=== PATIENT | male | born 1990 | race Caucasian/White ===

== ENCOUNTER → 2018-02-06 18:05 | Outpatient (CLI) | payer BC, SELFPAY ==
[2018-02-06 19:14] LABS: Basophils % 0.3 % (0.1-2.0); Eosinophils # 0.1 K/mm3 (0.0-0.4); Hematocrit 43.9 % (42.0-52.0); Hemoglobin 14.6 g/dL (14.1-18.0); Lymphocytes # 1.8 K/mm3 (0.7-4.5); Lymphocytes % 29.7 % (10-50); Mean Corpuscular HGB Conc 33.3 g/dL (31.8-35.4); Mean Corpuscular Hemoglobin 29.4 pg (27.0-31.2); Mean Corpuscular Volume 88.2 fl (80-94); Mean Platelet Volume 8.1 fl (7.4-10.4); Monocytes # 0.5 K/mm3 (0.1-1.0); Monocytes % 7.6 % (1.7-9.3); Neutrophils # 3.7 K/mm3 (1.8-7.8); Neutrophils % 60.5 % (37.0-80.0); Platelet Count 282 K/mm3 (142-424); Red Blood Count 4.98 M/mm3 (4.60-6.20); Red Cell Distribution Width 13.3 % (11.5-17.5); White Blood Count 6.2 K/mm3 (4.8-10.8)
[2018-02-06 19:15] LABS: Alanine Aminotransferase 38 U/L (12-78); Albumin Level 3.8 gm/dL (3.4-5.0); Albumin/Globulin Ratio 1.2 (1.1-1.8); Alkaline Phosphatase 112 U/L (46-116); Anion Gap 15.6 mEq/L (5-15); Aspartate Amino Transferase 14 U/L (15-37); Bilirubin,Total 0.5 mg/dL (0.2-1.0); Blood Urea Nitrogen 12 mg/dL (7-18); Calcium 9.1 mg/dL (8.5-10.1); Carbon Dioxide 27 mmol/L (21.0-32.0); Chloride 102 mmol/L (98-107); Chol/HDL Ratio 5.2 (1-3.5); Cholesterol 152 mg/dL (140-200); Creatinine,Serum 0.97 mg/dL (0.70-1.30); Estimated Glomerular Filt Rate 92 ml/min (>60); GFR (African American) 112 ML/MIN (>60); Globulin 3.2 gm/dl (1.3-3.2); Glucose 103 mg/dL (74-106); HDL Cholesterol 29 mg/dL (27-67); LDL Cholesterol 103 mg/dL (0-130); Potassium 3.6 mmoL/L (3.5-5.1); Sodium 141 mmol/L (136-145); Thyroid Stimulating Hormone 3.33 uIU/ml (0.358-3.740); Triglycerides 102 mg/dL (30-200); VLDL Cholesterol 20 mg/dL (0-40)
[2018-02-10 11:14] LABS: Vitamin D 25 Hydroxy 18.8 ng/mL (30.0-100.0)
[2018-02-10 11:15] LABS: PSA, Free 0.41 ng/mL; Prostate Specific Ag 1.2 ng/mL (0.0-4.0)
== END ==
PROVIDERS: Visit Provider Physician Assistant
DX: N52.9 Male erectile dysfunction, unspecified (principal)
CPT/HCPCS: 80053; 80061; 82652; 84153; 84154; 84402; 84436; 84443; 85025

== ENCOUNTER → 2019-04-20 13:52 | Outpatient (CLI) | payer BC, SELFPAY ==
[2019-04-20 14:26] LABS: Basophils % 0.3 % (0.1-2.0); Eosinophils # 0.2 K/mm3 (0.0-0.4); Eosinophils % 2.3 % (0.1-12.0); Hematocrit 44.7 % (42.0-52.0); Hemoglobin 15.7 g/dL (14.1-18.0); Lymphocytes # 1.9 K/mm3 (0.7-4.5); Lymphocytes % 25.6 % (10-50); Mean Corpuscular HGB Conc 35.1 g/dL (31.8-35.4); Mean Corpuscular Hemoglobin 30.2 pg (27.0-31.2); Mean Corpuscular Volume 86.3 fl (80-94); Mean Platelet Volume 7.6 fl (7.4-10.4); Monocytes # 0.5 K/mm3 (0.1-1.0); Monocytes % 6.9 % (1.7-9.3); Neutrophils # 4.9 K/mm3 (1.8-7.8); Neutrophils % 64.8 % (37.0-80.0); Platelet Count 329 K/mm3 (142-424); Red Blood Count 5.19 M/mm3 (4.60-6.20); Red Cell Distribution Width 12.7 % (11.5-17.5); White Blood Count 7.5 K/mm3 (4.8-10.8)
[2019-04-20 15:13] LABS: Albumin Level 3.8 gm/dL (3.4-5.0); Albumin/Globulin Ratio 1.2 (1.1-1.8); Alkaline Phosphatase 122 U/L (46-116); Anion Gap 15.7 mEq/L (5-15); Aspartate Amino Transferase 18 U/L (15-37); Bilirubin,Total 0.3 mg/dL (0.2-1.0); Blood Urea Nitrogen 10 mg/dL (7-18); Calcium 9.2 mg/dL (8.5-10.1); Carbon Dioxide 27 mmol/L (21.0-32.0); Chloride 104 mmol/L (98-107); Cholesterol 149 mg/dL (140-200); Estimated Glomerular Filt Rate 88 ml/min (>60); GFR (African American) 107 ML/MIN (>60); Globulin 3.3 gm/dl (1.3-3.2); HDL Cholesterol 25 mg/dL (27-67); LDL Cholesterol 93 mg/dL (0-130); Potassium 3.7 mmoL/L (3.5-5.1); Sodium 143 mmol/L (136-145); T4 (Thyroxine) 9.7 ug/dl (4.7-13.3); Thyroid Stimulating Hormone 0.01 uIU/ml (0.358-3.740); Total Protein,Serum 7.1 gm/dL (6.4-8.2); Triglycerides 156 mg/dL (30-200); VLDL Cholesterol 31 mg/dL (0-40)
[2019-04-20 15:22] LABS: Alanine Aminotransferase 41 U/L (12-78); Glucose 75 mg/dL (74-106)
[2019-04-22 10:47] LABS: Vitamin D 25 Hydroxy 15.3 ng/mL (30.0-100.0)
== END ==
PROVIDERS: Visit Provider Physician Assistant
DX: F41.9 Anxiety disorder, unspecified (principal); E55.9 Vitamin D deficiency, unspecified
CPT/HCPCS: 80053; 80061; 82652; 84436; 84443; 85025

== ENCOUNTER → 2019-05-05 14:30 | Outpatient (CLI) | payer BC, SELFPAY ==
[2019-05-05 16:45] LABS: Free T4 (Free Thyroxine) 1.11 ng/dl (0.76-1.46); Thyroid Stimulating Hormone 2.49 uIU/ml (0.358-3.740)
[2019-05-07 10:27] LABS: Thyroid Peroxidase Antibodies 6 IU/mL (0-34)
[2019-05-08 17:18] LABS: Thyroid Stimulating Immunoglob <0.10 IU/L (0.00-0.55)
[2019-05-11 20:59] LABS: Testosterone, Total, LC/MS 509.6 ng/dL (264.0-916.0); Testosterone,Free 14.3 pg/mL (9.3-26.5)
== END ==
PROVIDERS: Nurse Practitioner Psychiatric/Mental Health; Visit Provider Otolaryngology
DX: R53.83 Other fatigue (principal); E05.90 Thyrotoxicosis, unspecified without thyrotoxic crisis or storm
CPT/HCPCS: 36415; 84402; 84403; 84439; 84443; 84445; 86376

== ENCOUNTER → 2019-05-11 13:06 | Outpatient (CLI) | payer BC, SELFPAY ==
--- NOTE | 2019-05-11 13:06 | US_ITS ---
PROCEDURE: US THYROID CLINICAL INDICATION: hyperthyroid COMPARISON: No exams were available for comparison FINDINGS: Right lobe: 1.4 x 4.3 x 1.6 centimeters Left lobe: 1.4 x 4.4 x 2.0 centimeters Isthmus: 2.7 millimeters Additional findings: There is homogeneous echotexture without a discrete nodule. IMPRESSION: Exam within normal limits. Dictated by: Lamberto Mobley 05/11/2019 16:06 Electronically signed by Lamberto Mobley in [place] 05/11/2019 16:06
== END ==
PROVIDERS: PCP Physician Assistant; Visit Provider Otolaryngology
DX: E05.90 Thyrotoxicosis, unspecified without thyrotoxic crisis or storm (principal)
CPT/HCPCS: 76536

== ENCOUNTER 2019-09-10 13:56 | Emergency (ER) | payer BC, SELFPAY ==
[2019-09-10 14:29] VITALS: BP 143/91; PULSE 63; RESP 20; TEMP 36.8; O2SAT 97; BMI 30.5
--- NOTE | 2019-09-10 14:45 | HMH.EDUTC ---
[facility] Disposition Clinical Impression: Eye problems Disposition: Home, Self-Care Condition on Discharge: Good Instructions: Conjunctivitis, DI for Conjunctivitis, DI for Eye Allergic Reaction Additional Instructions: Go straight to [facility] and call them when you are in the parking lot you must wear a mask Return if needed Straight to ER if any life threatening symptoms [facility] [address] [place] [address] Referrals: Alma Cabrera PA [Primary Care Provider] - [facility] [Other] Forms: Work/School Release Time of Disposition: 14:52 Medical Decision Making - Joe Inquiry Pt receiving controlled substance: No Joe was queried for this patient: No Vital Signs: 09/10/19 14:29 09/10/19 14:52 Temperature 98.3 F 98.3 F Temperature Source Oral Pulse Rate 63 Pulse Rate [Right Brachial] 63 Respiratory Rate 20 20 Blood Pressure 143/91 H Blood Pressure [Right Arm] 143/91 H Blood Pressure Mean [Right Arm] 108 Blood Pressure Source [Right Arm] Automatic Cuff Blood Pressure Position [Right Arm] Sitting 02 Sat by Pulse Oximetry 97 Oxygen Delivery Method Room Air - Physician Consults Physician Consulted: Dr Elver Vidal Time: 14:50 Reason -: Opthalmology Eval/Care Comment/Response: Spoke with Staff and informed them of findings on Exam and patient complaint advised have him come straight to the office and they would see him for further treatment and evaluation [facility] HPI - General Stated complaint: eyes red and itchy, sore X 1 week Time Seen by Provider: 09/10/19 14:45 Mode of Arrival: Ambulatory Source of Information: Patient Limitations: No Limitations Description of Symptoms (Recalled from Triage Doc. by RN): PATIENT C/O BILATERAL PINK EYE SINCE SATURDAY. STATES HE WAS SEEN IN PSYCHIATRIC AND GIVEN OINTMENT, BUT EYES ARE NOT BETTER. HEENT Symptoms (Recalled from RN notes): No Resp Symptoms (Recalled from RN notes): No Skin Symptoms (Recalled from RN notes): No MS Symptoms (Recalled from RN notes): No Functional Status (Recalled from RN notes): WNL - History of Present Illness Provider Complaint: Patient states that he was seen at [facility] in [place] and was dx with pink eye States that he was give Erythromycin and his eyes has continued to get worse State that today eyes looks more red and doesnt think the medication is working Denies injury - Related Data Previous Rx's Medication Instructions Recorded cholecalciferol (vitamin D3) 25 1,000 unit PO DAILY #90 cap 04/23/19 mcg (1,000 unit) capsule ergocalciferol (vitamin D2) 1,250 50,000 unit PO QWEEK 90 Days #12 04/23/19 mcg (50,000 unit) capsule cap risperidone 0.5 mg tablet 0.5 mg PO BID #60 tab 07/20/19 clonazepam 2 mg tablet 2 mg PO BID #60 tab 08/05/19 propranolol 80 mg capsule,24 See Rx Instructions .ROUTE 08/18/19 hr,extended release .COMPLEX #90 cap Allergies Allergy/AdvReac Type Severity Reaction Status Date / Time No Known Allergies Allergy Verified 07/15/19 13:01 - Worker's Comp Is this a Worker's Comp case?: No [facility] History - Hepatitis A Screen Drug use history?: No High risk sexual behaviors?: No History of sexually transmitted infection?: No Currently employed?: No Childcare worker?: No Do you have indoor plumbing?: Yes Do you have electricity?: Yes Attestation statement:: This patient has been screened for Hepatitis A risk factors. I have reviewed the patient's past medical history: Yes Medical History: Reports:: Anxiety, Hypertension Other Surgeries: Yes: Other Amputation: No Comment: Nose - Social History Smoking Status: Never smoker Alcohol Intake: never Substance Use Type: denies use Occupational Status: other - Psychiatric History Pschychiatric History:: Reports:: Anxiety Family Hx:: Cancer, Hyperlipidemia, Hypertension, Thyroid Disorder ROS Obtained: Yes All systems reviewed & no additi
[2019-09-10 14:52] VITALS: BP 143/91; PULSE 63; RESP 20; TEMP 36.8; O2SAT 97
== END 2019-09-10 14:57 | disposition home or self-care (01) ==
PROVIDERS: Emergency Provider Nurse Practitioner; PCP Physician Assistant
DX: H10.33 Unspecified acute conjunctivitis, bilateral (principal); E55.9 Vitamin D deficiency, unspecified; F41.9 Anxiety disorder, unspecified; I10 Essential (primary) hypertension
CPT/HCPCS: 99201

== ENCOUNTER 2019-09-19 12:59 | Emergency (ER) | payer BC, SELFPAY ==
[2019-09-19 13:25] VITALS: BP 113/70; PULSE 96; RESP 19; TEMP 36.7; O2SAT 98; BMI 29.4
--- NOTE | 2019-09-19 13:30 | XR_ITS ---
PROCEDURE: XR FOOT WT BEARING LT 3V Patient Age:29Y CLINICAL INDICATION: PAIN left heel pain 3 weeks the COMPARISON: No exams were available for comparison FINDINGS: Left foot three views weight-bearing performed.-AP, lateral, with oblique No fracture or dislocation. No lytic or blastic change. There is normal mineralization. But adequate plantar arch but calcaneus is intact but no plantar calcaneal spur. Toes intact. The tarsals and metatarsals intact. Overall satisfactory relationships but no periosteal reaction but no cortical thickening The joint spaces are well-preserved. No significant degenerative/arthritic changes. No erosive changes evident. On 2 tiny artifacts seen projected posterior to the talus on the lateral film only are not seen on other views and thus are in significant artifact IMPRESSION: Negative left foot. L Eft foot intact. Dictated by: Mingo Patel MD 09/20/2019 09:54 Electronically signed by Mingo Patel MD in [place] 09/20/2019 09:54
--- NOTE | 2019-09-19 13:30 | XR_ITS ---
PROCEDURE: XR KNEE LT 3V Patient Age:29Y CLINICAL INDICATION: PAIN Knee pain the COMPARISON: XR FOOT WT BEARING LT 3V from 09/19/2019 FINDINGS: Left Knee-three views: AP, lateral and oblique performed No fracture or dislocation. No lytic or blastic change. There is normal mineralization. The joint spaces are well-preserved. No significant degenerative/arthritic changes. No erosive changes evident. Upper normal joint fluid at suprapatellar bursa on lateral view.. Tiny benign bone islands proximal tibia and mid patella noted IMPRESSION: Left knee intact with no fracture evident. Normal relationships joint space well maintained. . Upper normal joint fluid suprapatellar bursa Dictated by: Mingo Patel MD 09/20/2019 09:51 Electronically signed by Mingo Patel MD in [place] 09/20/2019 09:51
--- NOTE | 2019-09-19 13:33 | HMH.EDUTC ---
[facility] [place] Disposition Clinical Impression: Plantar fasciitis Low back strain Qualifiers: Encounter type: initial encounter Qualified Code(s): S39.012A - Strain of muscle, fascia and tendon of lower back, initial encounter Disposition: Home, Self-Care Condition on Discharge: Good Instructions: Plantar Fasciitis, DI for Plantar Fasciitis, Prednisone, Methocarbamol Additional Instructions: *Ibuprofen fredis 6 hours with meal as needed for pain/inflammation *Not additional anti-inflammatory like motrin, aleve, advil with the above amount of ibuprofen. You can still take Tylenol every 4 hours as needed if you need something else for pain *Ice 20 minutes every 2 hours for the first 48 hours after the initial injury followed by moist heat every 20 minutes 3-4 times a day to affected area *Muscle relaxer as prescribed as needed for muscle spasms but remember, it WILL cause drowsiness You cannot take it and drive, operate machinery or care for small children. *Keep this area active, no movement leads to more stiffness, However take it easy and avoid heavy lifting pushing or pulling *Follow up with you family doctor if no improvement for further treatment Make sure to keep appointment with Dr Giraldo as scheduled Return if needed Straight to ER if any life threatening symptoms Prescriptions: methylPREDNISolone [Medrol 4mg tab] 4 mg PO DIRECTED #21 tab Transmission Status: Pending to [facility] methocarbamoL [Methocarbamol 500mg Tablet] 500 mg PO BID PRN 5 Days #10 tab PRN Reason: Muscle Spasm Transmission Status: Pending to [facility] Referrals: Alma Cabrera PA [Primary Care Provider] - As needed Madelaine Giraldo DPM [Staff Physician] - Time of Disposition: 15:01 Medical Decision Making - Joe Inquiry Pt receiving controlled substance: No Joe was queried for this patient: No Vital Signs: 09/19/19 13:25 Temperature 98.0 F Temperature Source Oral Pulse Rate [Right Brachial] 96 H Respiratory Rate 19 Blood Pressure [Right Arm] 113/70 Blood Pressure Mean [Right Arm] 84 Blood Pressure Source [Right Arm] Automatic Cuff Blood Pressure Position [Right Arm] Sitting 02 Sat by Pulse Oximetry 98 Oxygen Delivery Method Room Air Orders (Tests/Meds): ORDERS Category Date Time Status Knee XR left 3 views [XR knee LT 3V] Stat Exams 09/19/19 13:30 Ordered XR foot wt bearing LT 3V Stat Exams 09/19/19 13:30 Ordered - Radiology Data #1 Image(s): Knee Image Reviewed: Yes I reviewed the patient's radiology image Preliminary Findings: No Fracture Seen #2 Image(s): Foot/Toes Image Reviewed: Yes I reviewed the patient's radiology image Preliminary Findings: No Fracture Seen - Reevaluation(s) Time: 13:30 Reevaluation #1: Radiology notified of order for xray patient awaiting to go to xray Time: 14:28 Reevaluation #3: Patient resting in room no complaints still awaiting to go to xray [facility] HPI - General Stated complaint: back pain knee pain, foot pain Time Seen by Provider: 09/19/19 13:33 Mode of Arrival: Ambulatory Source of Information: Patient Limitations: No Limitations Description of Symptoms (Recalled from Triage Doc. by RN): PATIENT C/O BACK PAIN, LEFT KNEE PAIN, AND LEFT FOOT PAIN X 3 DAYS HEENT Symptoms (Recalled from RN notes): No Resp Symptoms (Recalled from RN notes): No Skin Symptoms (Recalled from RN notes): No MS Symptoms (Recalled from RN notes): Yes Functional Status (Recalled from RN notes): WNL - History of Present Illness Provider Complaint: Patient states that he is suppose to see Podiatry on Saturday for pain in his left foot with suspected planter facitits States that where he has been limping on it his left knee started hurting and feels swollen Also states that he feels like he pulled something in his right lower back the other day States that he has been having pain with bending and getting up from sitting position Denies known injury States that
--- NOTE | 2019-09-19 14:32 | PC.NURSE ---
radiology called at [phone]
--- NOTE | 2019-09-19 14:32 | PC.NURSE ---
pt to rad at this time
[2019-09-19 15:15] VITALS: BP 113/70; PULSE 96; RESP 19; TEMP 36.7; O2SAT 98
== END 2019-09-19 15:20 | disposition home or self-care (01) ==
PROVIDERS: Emergency Provider Nurse Practitioner; PCP Physician Assistant
DX: M72.2 Plantar fascial fibromatosis (principal); S39.012A Strain of muscle, fascia and tendon of lower back, initial encounter; I10 Essential (primary) hypertension; F41.9 Anxiety disorder, unspecified; Z79.899 Other long term (current) drug therapy
CPT/HCPCS: 29515; 73562; 73630; 99202

== ENCOUNTER → 2019-10-09 12:53 | Outpatient (CLI) | payer BC, SELFPAY ==
--- NOTE | 2019-10-09 12:54 | XR_ITS ---
PROCEDURE: XR KNEE LT 4V CLINICAL INDICATION: left knee pain COMPARISON: No exams were available for comparison FINDINGS: No fracture or dislocation. No lytic or blastic change. There is normal mineralization. The joint spaces are well-preserved. No significant degenerative/arthritic changes. No erosive changes evident. Other findings:None. IMPRESSION: No acute findings. Dictated by: Dr. Marcos Whittaker MD 10/09/2019 13:[address] Marcos Whittaker MD in [place] 10/09/2019 13:29
--- NOTE | 2019-10-09 14:03 | XR_ITS ---
PROCEDURE: XR KNEE RT 4V CLINICAL INDICATION: Rt knee pain COMPARISON: XR KNEE LT 3V from 09/19/2019 XR KNEE LT 4V from 10/09/2019 FINDINGS: No fracture or dislocation. No lytic or blastic change. There is normal mineralization. The joint spaces are well-preserved. No significant degenerative/arthritic changes. No erosive changes evident. Other findings:There are 2 small foci within the distal femur and 1 within the patella consistent with small bone IMPRESSION: No acute findings. Dictated by: Kushal Mauricio MD 10/09/2019 16:47 Electronically signed by Kushal Mauricio MD in [place] 10/09/2019 16:47
== END ==
PROVIDERS: PCP Physician Assistant; Visit Provider Orthopaedic Surgery
DX: M25.562 Pain in left knee (principal); M25.561 Pain in right knee
CPT/HCPCS: 73564

== ENCOUNTER → 2019-10-20 14:45 | Outpatient (CLI) | payer BC, SELFPAY ==
[2019-10-20 15:17] LABS: Basophils % 0.4 % (0.1-2.0); Eosinophils # 0.1 K/mm3 (0.0-0.4); Eosinophils % 0.8 % (0.1-12.0); Hematocrit 38.5 % (42.0-52.0); Lymphocytes # 1.2 K/mm3 (0.7-4.5); Lymphocytes % 22.8 % (10-50); Mean Corpuscular HGB Conc 33.8 g/dL (31.8-35.4); Mean Corpuscular Volume 88.8 fl (80-94); Mean Platelet Volume 7.4 fl (7.4-10.4); Monocytes # 0.3 K/mm3 (0.1-1.0); Monocytes % 4.9 % (1.7-9.3); Neutrophils # 3.9 K/mm3 (1.8-7.8); Neutrophils % 71.1 % (37.0-80.0); Platelet Count 366 K/mm3 (142-424); Red Blood Count 4.33 M/mm3 (4.60-6.20); Red Cell Distribution Width 13.4 % (11.5-17.5); White Blood Count 5.5 K/mm3 (4.8-10.8)
[2019-10-20 17:58] LABS: Erythrocyte Sedimentation Rate 47 mm/hr (0-15)
[2019-10-20 18:04] LABS: Alanine Aminotransferase 20 U/L (12-78); Albumin Level 4.2 g/dl (3.5-5.0); Albumin/Globulin Ratio 1.4 (1.1-1.8); Alkaline Phosphatase 91 U/L (38-126); Anion Gap 14.8 mEq/L (5-15); Aspartate Amino Transferase 21 U/L (17-59); Bilirubin,Total 0.6 mg/dl (0.2-1.3); Blood Urea Nitrogen 12 mg/dl (9-20); Calcium 9.9 mg/dl (8.4-10.2); Carbon Dioxide 31 mmol/L (22.0-30.0); Chloride 99 mmol/L (98-107); Estimated Glomerular Filt Rate 114 ml/min (>60); GFR (African American) 137 ML/MIN (>60); Globulin 2.9 g/dL (1.3-3.2); Glucose 98 mg/dl (74-100); Potassium 4.8 mmoL/L (3.5-5.1); Sodium 140 mmol/L (136-145); Total Protein,Serum 7.1 g/dl (6.3-8.2); Uric Acid 5.5 mg/dl (3.5-8.5)
[2019-10-20 18:10] LABS: C-Reactive Protein 39.7 mg/L (0-4)
[2019-10-22 10:11] LABS: Folate 4.6 ng/mL (>3.0); RA Latex Turbid. <10.0 IU/mL (0.0-13.9); Vitamin B12 474 pg/mL (232-1245)
[2019-10-23 12:30] LABS: Antinuclear Antibodies, IFA Negative (.)
[2019-10-25 09:38] LABS: 1,25 Dihydroxy Vitamin D 43 pg/mL (.); 1,25-Dihydroxy, Vitamin D-2 <10 pg/mL (.); 1,25-Dihydroxy, Vitamin D-3 42 pg/mL (.)
== END ==
PROVIDERS: Visit Provider Podiatrist
DX: M79.671 Pain in right foot (principal)
CPT/HCPCS: 36415; 80053; 82607; 82652; 82746; 84443; 84550; 85025; 85651; 86038; 86140; 86431

== ENCOUNTER → 2019-11-04 09:42 | Outpatient (CLI) | payer BC, SELFPAY ==
--- NOTE | 2019-11-04 09:48 | XR_ITS ---
PROCEDURE: XR LUMBAR SPINE MIN 4V CLINICAL INDICATION: LBP Low back pain COMPARISON: No exams were available for comparison FINDINGS: No fracture or dislocation. No lytic or blastic change. There is normal mineralization. Minimal lumbar curvature convex left. The disc spaces are well preserved. Other findings:None. IMPRESSION: No acute findings. Dictated b Kushal Mauricio MD 11/04/2019 14:13 Kushal Mauricio MD in [place] 11/04/2019 14:13
[2019-11-04 14:07] LABS: Uric Acid 5.1 mg/dl (3.5-8.5)
[2019-11-04 14:12] LABS: C-Reactive Protein 20.5 mg/L (0-4)
[2019-11-04 18:20] LABS: Erythrocyte Sedimentation Rate 23 mm/hr (0-15)
[2019-11-06 14:15] LABS: RA Latex Turbid. <10.0 IU/mL (0.0-13.9)
[2019-11-08 12:20] LABS: Anti-Cyclic Citrullinated Pept 7 units (0-19); Antinuclear Antibodies, IFA Positive (.)
[2019-11-11 22:52] LABS: HLA-B27 Negative (.)
== END ==
PROVIDERS: PCP Physician Assistant; Visit Provider Physician Assistant
DX: M25.50 Pain in unspecified joint (principal); F31.9 Bipolar disorder, unspecified; E55.9 Vitamin D deficiency, unspecified
CPT/HCPCS: 72110; 84550; 85651; 86038; 86140; 86200; 86431; 86812

== ENCOUNTER 2020-04-05 16:45 | Emergency (ER) | payer BC, SELFPAY ==
[2020-04-05 16:46] VITALS: BP 125/69; PULSE 71; RESP 14; TEMP 36.4; O2SAT 94; BMI 29.5
--- NOTE | 2020-04-05 17:39 | HMH.EDUTC ---
[facility] [place] Disposition Clinical Impression: Viral syndrome, Exposure to COVID-19 virus Disposition: Home, Self-Care Condition on Discharge: Good Instructions: Preventing the Spread of Coronavirus Discharge Instructions Additional Instructions: Drink plenty of fluids. Take tylenol for pain or fever. Return if you begin to have difficulty breathing. Follow up with your regular doctor. GO TO THE ER FOR ANY WORSENING SYMPTOMS Referrals: Alma Cabrera PA [Primary Care Provider] - Time of Disposition: 17:46 Medical Decision Making - Medical Records Medical records reviewed: No: I reviewed the patient's medical records. - Joe Inquiry Pt receiving controlled substance: No Vital Signs: 04/05/20 16:46 04/05/20 17:48 Temperature 97.5 F L 97.5 F L Temperature Source Oral Oral Pulse Rate 71 Pulse Rate [Right] 71 Respiratory Rate 14 14 Blood Pressure 125/69 Blood Pressure [Right Arm] 125/69 Blood Pressure Mean [Right Arm] 87 02 Sat by Pulse Oximetry 94 L [facility] [place] HPI - General Stated complaint: covid test Time Seen by Provider: 04/05/20 17:39 Description of Symptoms (Recalled from Triage Doc. by RN): pt request COVID test pt c/o chills ,REYNOLDS, N/d HEENT Symptoms (Recalled from RN notes): No Resp Symptoms (Recalled from RN notes): Yes Skin Symptoms (Recalled from RN notes): No MS Symptoms (Recalled from RN notes): No Functional Status (Recalled from RN notes): wl - History of Present Illness Provider Complaint: He c/o chills, body aches, altered sense of taste and feeling bad for the past 3 days. - Related Data Previous Rx's Medication Instructions Recorded diclofenac sodium 1 % topical gel 4 g TOPICAL QID PRN #30 g 10/20/19 meloxicam 7.5 mg tablet 7.5 mg PO ONCE #30 tab 10/20/19 cariprazine 1.5 mg capsule 1.5 mg PO DAILY #30 cap 03/15/20 clonazepam 2 mg tablet 2 mg PO BID #60 tab 03/15/20 Allergies Allergy/AdvReac Type Severity Reaction Status Date / Time No Known Allergies Allergy Verified 03/15/20 11:19 - Worker's Comp Is this a Worker's Comp case?: No Is this an [facility] Worker's Comp?: No Is this a [facility] Worker's Comp?: No H History - Hepatitis A Screen Drug use history?: No High risk sexual behaviors?: No History of sexually transmitted infection?: No Currently employed?: No Childcare worker?: No Do you have indoor plumbing?: Yes Do you have electricity?: Yes Attestation statement:: This patient has been screened for Hepatitis A risk factors. I have reviewed the patient's past medical history: Yes Medical History: Reports:: Anxiety, Hypertension Other Surgeries: Yes: Other Amputation: No Comment: Nose - Social History Smoking Status: Never smoker Alcohol Intake: never Substance Use Type: denies use Occupational Status: other - Psychiatric History Pschychiatric History:: Reports:: Anxiety Family Hx:: Cancer, Hyperlipidemia, Hypertension, Thyroid Disorder ROS Obtained: Yes All systems reviewed & no additional complaints - Constitutional Constitutional: Reports system reviewed and no additional complaints, except as docu - Eyes Eyes: Reports system reviewed and no additional complaints, except as docu - ENT Ears, Nose, Mouth, and Throat: Reports system reviewed and no additional complaints, except as docu - Cardiovascular Cardiovascular: Reports system reviewed and no additional complaints, except as docu, Denies dyspnea - Respiratory Respiratory: Reports system reviewed and no additional complaints, except as docu, Denies chest congestion, Denies cough, Denies dyspnea, Denies stridor, Denies wheezing - Gastrointestinal Gastrointestingal: Reports: system reviewed and no additional complaints, except as docu Physical Exam - General General appearance: alert, in no apparent distress - Head Head exam: atraumatic, normocephalic, normal inspection - Eye Eye exam: Present: normal appearance, PERRL, EOMI - ENT ENT exam: Present:
[2020-04-05 17:48] VITALS: BP 125/69; PULSE 71; RESP 14; TEMP 36.4; O2SAT 94
[2020-04-07 11:43] LABS: Covid-19 Nasal PCR Sendout P&C NEGATIVE
== END 2020-04-05 17:54 | disposition home or self-care (01) ==
PROVIDERS: Emergency Provider Nurse Practitioner Family; PCP Physician Assistant
DX: Z20.822 Contact with and (suspected) exposure to COVID-19 (principal); B34.9 Viral infection, unspecified; I10 Essential (primary) hypertension; F41.9 Anxiety disorder, unspecified; Z79.899 Other long term (current) drug therapy
CPT/HCPCS: 99202; G0463; U0004

== ENCOUNTER → 2020-07-04 13:43 | Outpatient (CLI) | payer BC, SELFPAY ==
[2020-07-04 15:24] LABS: Amphetamine/Metha Screen,Urine Negative ng/ml (<1000)
[2020-07-04 15:25] LABS: Barbiturates Screen,Urine Negative ng/ml (<200)
[2020-07-04 15:26] LABS: Cannabinoid Screen,Urine Negative ng/ml (<50)
[2020-07-04 15:27] LABS: Cocaine Screen,Urine Negative ng/ml (<300); Methadone Screen,Urine Negative ng/ml (<300)
[2020-07-04 15:28] LABS: Opiate Screen,Urine Negative ng/ml (<300)
[2020-07-04 15:29] LABS: Phencyclidine Screen,Urine Negative ng/ml (<25)
[2020-07-04 15:31] LABS: Benzodiazepines Screen,Urine Negative ng/ml (<200)
== END ==
PROVIDERS: Visit Provider Physician Assistant
DX: Z79.899 Other long term (current) drug therapy (principal)
CPT/HCPCS: 80305

== ENCOUNTER 2020-08-05 11:09 | Emergency (ER) | payer BC, SELFPAY ==
[2020-08-05 11:21] VITALS: BP 117/75; PULSE 64; RESP 17; TEMP 36.8; O2SAT 98; BMI 31.1
[2020-08-05 11:26] VITALS: BP 117/75; PULSE 64; RESP 17; TEMP 36.8; O2SAT 98
--- NOTE | 2020-08-05 11:27 | HMH.EDUTC ---
[facility] [place] Disposition Clinical Impression: Strep throat Disposition: Home, Self-Care Condition on Discharge: Good Instructions: DI for Strep Throat Additional Instructions: Start antibiotics today be sure to take it as ordered with the full length of time although you should start feeling better in 24-48 hours. Change toothbrush and toothpaste 24-48 hours after starting antibiotics Tylenol or Motrin as needed for fever or pain Encourage fluids, water, Gatorade, Powerade, try cold fluids, popsicles, ice cream will make it feel better You are contagious for 24 hours. Avoid kissing anyone, no eating or drinking after anyone. You are contagious. Follow-up the ER for new or worsening symptoms or no noticeable improvement over the next 24-48 hours. Follow-up with PCP this week. Prescriptions: Azithromycin [Zithromax 250mg tab] 250 mg PO DIRECTED #6 tab Transmission Status: Pending to [facility] Referrals: Alma Cabrera PA [Primary Care Provider] - Time of Disposition: 11:34 Medical Decision Making - Joe Inquiry Pt receiving controlled substance: No Vital Signs: 08/05/20 11:21 08/05/20 11:26 Temperature 98.2 F 98.2 F Temperature Source Oral Pulse Rate 64 Pulse Rate [Left] 64 Respiratory Rate 17 17 Blood Pressure 117/75 Blood Pressure [Right Arm] 117/75 Blood Pressure Mean [Right Arm] 89 02 Sat by Pulse Oximetry 98 [facility] HPI - General Chief complaint: Urgent [facility] Stated complaint: sore throat,cough Time Seen by Provider: 08/05/20 11:27 Mode of Arrival: Ambulatory Source of Information: Patient Limitations: No Limitations Description of Symptoms (Recalled from Triage Doc. by RN): Pt states he wants to be strep tested because his tested positive HEENT Symptoms (Recalled from RN notes): No Resp Symptoms (Recalled from RN notes): No Skin Symptoms (Recalled from RN notes): No MS Symptoms (Recalled from RN notes): No Functional Status (Recalled from RN notes): wnl - History of Present Illness Provider Complaint: 30 yr old male presents for sore throat. pt states and son both tested positive for strep. - Related Data Previous Rx's Medication Instructions Recorded clonazepam 2 mg tablet 2 mg PO BID #60 tab 07/04/20 Azithromycin [Zithromax 250mg 250 mg PO DIRECTED #6 tab 08/05/20 tab] Allergies Allergy/AdvReac Type Severity Reaction Status Date / Time No Known Allergies Allergy Verified 07/04/20 10:35 - Worker's Comp Is this a Worker's Comp case?: No Is this an [facility] Worker's Comp?: No [facility] History - Hepatitis A Screen Drug use history?: No High risk sexual behaviors?: No History of sexually transmitted infection?: No Currently employed?: No Childcare worker?: No Do you have indoor plumbing?: Yes Do you have electricity?: Yes Attestation statement:: This patient has been screened for Hepatitis A risk factors. I have reviewed the patient's past medical history: Yes Medical History: Reports:: Anxiety, Hypertension Other Surgeries: Yes: Other Amputation: No Comment: Nose - Social History Smoking Status: Never smoker Alcohol Intake: never Substance Use Type: denies use Occupational Status: other - Psychiatric History Pschychiatric History:: Reports:: Anxiety Family Hx:: Cancer, Hyperlipidemia, Hypertension, Thyroid Disorder ROS Obtained: Yes Systems reviewed as appropriate & no additional complaints - Constitutional Constitutional: Reports system reviewed and no additional complaints, except as docu, Denies fever(s) - Eyes Eyes: Reports system reviewed and no additional complaints, except as docu, Denies change in vision - ENT Ears, Nose, Mouth, and Throat: Reports system reviewed and no additional complaints, except as docu, Reports sore throat - Cardiovascular Cardiovascular: Reports system reviewed and no additional complaints, except as docu, Denies chest pain at rest - Respiratory Respiratory: Report
[2020-08-05 17:20] LABS: UTC Strep Screen (Rapid) Negative (Negative)
== END 2020-08-05 11:38 | disposition home or self-care (01) ==
PROVIDERS: Emergency Provider Nurse Practitioner Family; PCP Physician Assistant
DX: J02.0 Streptococcal pharyngitis (principal)
CPT/HCPCS: 87880; 99202; G0463

== ENCOUNTER → 2020-09-13 13:56 | Outpatient (CLI) | payer BC, SELFPAY ==
[2020-09-13 14:06] LABS: Basophils % 0.6 % (0.1-2.0); Eosinophils # 0.1 K/mm3 (0.0-0.4); Eosinophils % 1.8 % (0.1-12.0); Hematocrit 43.8 % (42.0-52.0); Hemoglobin 15.5 g/dL (14.1-18.0); Lymphocytes # 1.7 K/mm3 (0.7-4.5); Lymphocytes % 24.9 % (10-50); Mean Corpuscular HGB Conc 35.4 g/dL (31.8-35.4); Mean Corpuscular Hemoglobin 30.2 pg (27.0-31.2); Mean Corpuscular Volume 85.1 fl (80-94); Mean Platelet Volume 7.8 fl (7.4-10.4); Monocytes # 0.5 K/mm3 (0.1-1.0); Monocytes % 7.2 % (1.7-9.3); Neutrophils # 4.6 K/mm3 (1.8-7.8); Neutrophils % 65.6 % (37.0-80.0); Platelet Count 291 K/mm3 (142-424); Red Blood Count 5.15 M/mm3 (4.60-6.20); White Blood Count 6.9 K/mm3 (4.8-10.8)
[2020-09-13 14:17] LABS: Chloride 100 mmol/L (98-107); Potassium 4.2 mmoL/L (3.5-5.1); Sodium 141 mmol/L (136-145)
[2020-09-13 14:19] LABS: Blood Urea Nitrogen 10 mg/dl (9-20); Estimated Glomerular Filt Rate 98 ml/min (>60); GFR (African American) 119 ML/MIN (>60)
[2020-09-13 14:20] LABS: Alanine Aminotransferase 35 U/L (12-78); Albumin Level 4.6 g/dl (3.5-5.0); Albumin/Globulin Ratio 1.6 (1.1-1.8); Alkaline Phosphatase 108 U/L (38-126); Anion Gap 16.2 mEq/L (5-15); Aspartate Amino Transferase 30 U/L (17-59); Bilirubin,Total 0.5 mg/dl (0.2-1.3); Calcium 9.5 mg/dl (8.4-10.2); Carbon Dioxide 29 mmol/L (22.0-30.0); Globulin 2.9 g/dL (1.3-3.2); Glucose 89 mg/dl (74-100); Total Protein,Serum 7.5 g/dl (6.3-8.2)
[2020-09-13 14:26] LABS: C-Reactive Protein 11.9 mg/L (0-4)
[2020-09-13 14:58] LABS: Erythrocyte Sedimentation Rate 39 mm/hr (0-15)
[2020-09-15 08:32] LABS: RA Latex Turbid. <10.0 IU/mL (0.0-13.9)
[2020-09-15 15:27] LABS: Anti-Centromere B Antibodies <0.2 AI (0.0-0.9); Anti-DNA (DS) Ab Qn 2 IU/mL (0-9); Anti-Jo-1 <0.2 AI (0.0-0.9); Anti-Smith Antibody <0.2 AI (0.0-0.9); Antichromatin Antibodies <0.2 AI (0.0-0.9); Antiscleroderma-70 Antibodies <0.2 AI (0.0-0.9); RNP Antibodies <0.2 AI (0.0-0.9); Sjogren's Anti-SS-A <0.2 AI (0.0-0.9); Sjogren's Anti-SS-B <0.2 AI (0.0-0.9)
[2020-09-16 00:07] LABS: Anti-Cyclic Citrullinated Pept 6 units (0-19)
== END ==
PROVIDERS: Visit Provider Physician Assistant
DX: M25.50 Pain in unspecified joint (principal)
CPT/HCPCS: 80053; 85025; 85651; 86140; 86200; 86225; 86235; 86431

== ENCOUNTER → 2020-10-17 13:48 | Outpatient (CLI) | payer BC, SELFPAY ==
[2020-10-17 15:04] LABS: Amphetamine/Metha Screen,Urine Negative ng/ml (<1000); Barbiturates Screen,Urine Negative ng/ml (<200)
[2020-10-17 15:05] LABS: Benzodiazepines Screen,Urine Negative ng/ml (<200)
[2020-10-17 15:06] LABS: Cannabinoid Screen,Urine Negative ng/ml (<50)
[2020-10-17 15:07] LABS: Methadone Screen,Urine Negative ng/ml (<300)
[2020-10-17 15:08] LABS: Opiate Screen,Urine Negative ng/ml (<300); Phencyclidine Screen,Urine Negative ng/ml (<25)
[2020-10-17 16:37] LABS: Cocaine Screen,Urine Negative ng/ml (<300)
== END ==
PROVIDERS: Visit Provider Physician Assistant
DX: Z79.899 Other long term (current) drug therapy (principal)
CPT/HCPCS: 80305

== ENCOUNTER → 2020-10-26 09:43 | Outpatient (CLI) | payer BC, SELFPAY ==
--- NOTE | 2020-10-26 | CA_ITS ---
APPROVED REPORT Exam: Exercise Treadmill Technologist: Berta Silverio, Ht: 6 ft 0 in Wt: 238 lbs BSA: 2.29 m2 HR: 78 bpm BP: 160/78 mmHg Medical History Medications: Lisinopril,,,,, Omeprazole,,,,, KloNOPIN,,,,, LaMICTAL,,,,, Seroquel,,,,, Toprol XL,,,,, Stress Test Details Test: Tommie HR Resting HR: 90 bpm Max Heart Rate (APMHR): 189 bpm Max HR Achieved: 179 bpm Target HR (85% APMHR): 160 bpm % of APMHR: 94 Recovery HR: 107 bpm BP Resting BP: 154/88 mmHg Max BP: 214/86 mmHg Recovery BP: 157.0/81.0 mmHg ECG Resting ECG: NSR, incomplete RBBB Clinical Exercise duration: 09:45 min Highest Stage Achieved: Exercise capacity: 10.1 METs Stress ECG Conclusion Exercised 9:45 on Tommie Protocol, stopping due to SOA. Max HR: 179 % of PM: 95% Max BP: 214/86 METs: 10.1 Symptoms: No CP. Arrhythmias/Ectopy: None ST-T Changes: Normal ST response to exercise. Conclusion: Normal GXT. GXT only (no imaging). Test Summary RECOVERY 06:00 0.0 0.0 108 . 173/ 81 . . REST . . . . . . . Standing REST 06:41 0.0 0.0 90 . 154/ 88 . . Stage 1 01:00 10.0 1.7 109 . . . . Stage 1 02:00 10.0 1.7 117 . . . . Stage 1 03:00 10.0 1.7 125 . 168/ 80 . . Stage 2 01:00 12.0 2.5 135 . . . . Stage 2 02:00 12.0 2.5 139 . . . . Stage 2 03:00 12.0 2.5 146 . 188/ 90 . . Stage 3 01:00 14.0 3.4 154 . . . . Stage 3 02:00 14.0 3.4 165 . . . . Stage 3 03:00 14.0 3.4 170 . 214/ 86 . . Stage 4 00:45 16.0 4.2 179 . . . Stop exercise at 09:45 RECOVERY 01:00 0.0 0.0 155 . . . . RECOVERY 02:00 0.0 0.0 138 . 203/100 . . RECOVERY 03:00 0.0 0.0 122 . 203/100 . . RECOVERY 04:00 0.0 0.0 113 . 186/ 81 . . RECOVERY 05:00 0.0 0.0 110 . 173/ 81 . . RECOVERY 06:00 0.0 0.0 108 . 173/ 81 . . RECOVERY 07:00 0.0 0.0 106 . 173/ 81 . . RECOVERY 07:20 0.0 0.0 108 . 157/ 81 . . Electronically signed by : Earnest Delgado MD 10/27/2020 14:55:48
--- NOTE | 2020-10-26 10:12 | CA_ITS ---
APPROVED REPORT EXAM: Comprehensive 2D, Doppler, and color-flow Echocardiogram Route Delivery Manager: Naheed Wade, RCS, RVS Ht: 6 ft 0 in Wt: 238lbs BSA: 2.29 BP: 120/70 mmHg Indications: Rheumatoid arthritis??, CP, SOB, edema, HTN Echo Enhancing Agent Comments: Technically limited due to pectis excavatum 2D Dimensions LVOT 2.05 cm (M/F) 1.5-2.5 M-Mode Dimensions RVDd 2.97 cm (0.9-2.6) LA Diam 3.35 cm (1.9-4.0) LVDd 5.15 cm (3.5-5.7) Ao Diam 3.11 cm (2.0-3.7) LVDs 2.90 cm (3.5-5.7) IVSd 1.03 cm (0.6-1.1) PWd 1.03 cm (0.6-1.1) EF (Teich) 73.40% EPSs 0.27 cm FS 42.60% EDV (Teich) 121.00 mL ESV (Teich) 32.20 mL LV Diastology E Decel Time 150.00 (160-240 msec) MED E' 11.70 (< 7 cm/sec) E'/MED E' Ratio 6.41 (>14) LAT E' 9.50 (<10 cm/sec) E/LAT E' Ratio 7.89 (>14) Aortic Valve LVOT Max 94.00 (70-110 cm/s) LVOT VTI 18.34 cm AoV Peak Scout. 143.00 (50-130 cm/s) AO Peak GR. 8.20 mmHg AO Mean GR. 4.00 (<5 mmHg) AO VTI 25.09 (18-25 cm) DANETTE (VTI) 2.41 (2.5-4.5 cm2) Mitral Valve MV E Max Scout. 75.00 (40-130 cm/s) MV Decel. Time 150.00 (160-240 ms) MV PHT 44.00 ms Pulmonary Valve PV Peak Velocity 107.00 (50-150 cm/s) Tricuspid Valve TR P. Velocity 206.00 cm/s RAP Estimate 10.00 mmHg RVSP 27.00 mmHg Left Ventricle Left atrium normal size, left ventricle is normal size, there is no concentric left ventricular hypertrophy, visually estimated ejection fraction 55% with no regional wall motion abnormality, diastolic parameters are within normal range. Right Ventricle Right atrium and right ventricle are normal size and contractility. Aortic Valve Aortic valve is grossly normal, there is no aortic stenosis or aortic insufficiency. Mitral Valve Mitral valve grossly normal, there is trace mitral regurgitation. Tricuspid Valve Tricuspid grossly normal, there is trace tricuspid regurgitation. Pulmonic Valve Pulmonic valve is poorly visualized. Great Vessels Aortic root is normal size. Pericardium No significant pericardial effusion noted. Conclusion 1. Normal left ventricular size, preserved left ventricular systolic function, visually estimated ejection fraction 55% with no regional wall motion abnormality, diastolic parameters are within normal range. 2. Trace mitral and tricuspid regurgitation. 3. No significant pericardial effusion noted. Electronically signed by : Earnest Delgado MD 10/27/2020 15:40:44
== END ==
PROVIDERS: PCP Physician Assistant; Visit Provider Internal Medicine Cardiovascular Disease
DX: R07.9 Chest pain, unspecified (principal); R06.09 Other forms of dyspnea; I10 Essential (primary) hypertension
CPT/HCPCS: 93017; 93306

== ENCOUNTER → 2020-11-16 12:05 | Outpatient (CLI) | payer BC, SELFPAY | PROVIDERS: PCP Physician Assistant; Visit Provider Internal Medicine Cardiovascular Disease | DX: G47.30 Sleep apnea, unspecified (principal); R06.83 Snoring; R40.0 Somnolence | CPT/HCPCS: G0399 ==

== ENCOUNTER → 2020-12-30 08:33 | Outpatient (CLI) | payer BC, SELFPAY ==
--- NOTE | 2020-12-30 08:36 | CT_ITS ---
PROCEDURE INFORMATION: Exam: CT Chest Without Contrast; Diagnostic Exam date and time: 12/30/2020 8:36 AM Age: 30 years old Clinical indication: Pain; Left-sided; Patient HX: Left cp left breast and axilla area, , no trauma; Additional info: Intermittent left sided chest pain TECHNIQUE: Imaging protocol: Diagnostic computed tomography of the chest without contrast. Radiation optimization: All CT scans at this facility use at least one of these dose optimization techniques: automated exposure control; mA and/or kV adjustment per patient size (includes targeted exams where dose is matched to clinical indication); or iterative reconstruction. COMPARISON: US THYROID 05/11/2019 1:04 PM FINDINGS: Lungs: No focal pneumonia or pneumothorax. No pulmonary masses. Atelectatic and/or fibrotic changes noted within the right lung base. Pleural spaces: There are no pleural effusions present. Heart: Unremarkable. No cardiomegaly. No pericardial effusion. Aorta: Unremarkable. No aortic aneurysm. Lymph nodes: Unremarkable. No enlarged lymph nodes. Diaphragm: There is nonspecific elevation of the right hemidiaphragm. Bones/joints: Unremarkable. No acute fracture. Soft tissues: Unremarkable. Other findings: Lack of IV contrast limits the study as well as decreases sensitivity and specificity. IMPRESSION: 1. No focal pneumonia or pneumothorax. 2. No pulmonary masses. 3. Atelectatic and/or fibrotic changes noted within the right lung base.
== END ==
PROVIDERS: PCP Physician Assistant; Visit Provider Physician Assistant
DX: R07.89 Other chest pain (principal)
CPT/HCPCS: 71250

== ENCOUNTER → 2021-01-02 12:35 | Outpatient (CLI) | payer BC, SELFPAY ==
[2021-01-02 13:15] VITALS: PULSE 72; PULSE 77
== END ==
PROVIDERS: PCP Physician Assistant; Visit Provider Physician Assistant
DX: R06.02 Shortness of breath (principal)
CPT/HCPCS: 94060; 94640; 94727; 94729

== ENCOUNTER → 2021-01-03 11:52 | Outpatient (CLI) | payer BC, SELFPAY ==
--- NOTE | 2021-01-03 11:54 | XR_ITS ---
PROCEDURE: XR PELVIS MIN 3V CLINICAL INDICATION: Low back pain COMPARISON: No exams were available for comparison TECHNIQUE: XR Pelvis AP View FINDINGS: No fracture or dislocation is evident. No significant degenerative change. There are 2 sclerotic foci in the intertrochanteric region of the left femur 1 at 16 mm and 1 at 12 mm. Small sclerotic focus is present overlying the right femoral neck at 6 mm. Facet hypertrophic changes are present at L5-S1 left greater than right IMPRESSION: Sclerotic lesions the femurs on both sides possibly due to bone islands. Consider follow-up to confirm stability as blastic metastatic foci are not excluded. Facet hypertrophic changes of L5-S1 left greater than right Dictated by: Kushal Mauricio MD 01/09/2021 10:17 Kushal Mauricio MD in [place] 01/09/2021 10:17
--- NOTE | 2021-01-03 11:54 | XR_ITS ---
PROCEDURE: XR LUMBAR SPINE MIN 4V CLINICAL INDICATION: LBP COMPARISON: CR XR LUMBAR SPINE MIN 4V from 11/04/2019 FINDINGS: Alignment: Normal alignment. Bony structures: No fracture or dislocation. No lytic or blastic change. Disc spaces: No significant degenerative change. The disc spaces are preserved. Additional findings: IMPRESSION: Negative lumbar spine Dictated by: Kushal Mauricio MD 01/04/2021 08:49 Kushal Mauricio MD in [facility] 01/04/2021 08:49
[2021-01-03 13:19] LABS: Alanine Aminotransferase 44 U/L (12-78); Albumin Level 4.5 g/dl (3.5-5.0); Albumin/Globulin Ratio 1.7 (1.1-1.8); Alkaline Phosphatase 95 U/L (38-126); Anion Gap 12.8 mEq/L (5-15); Aspartate Amino Transferase 40 U/L (17-59); Blood Urea Nitrogen 14 mg/dl (9-20); Carbon Dioxide 28 mmol/L (22.0-30.0); Chloride 102 mmol/L (98-107); Estimated Glomerular Filt Rate 98 ml/min (>60); GFR (African American) 119 ML/MIN (>60); Globulin 2.6 g/dL (1.3-3.2); Glucose 95 mg/dl (74-100); Potassium 4.8 mmoL/L (3.5-5.1); Sodium 138 mmol/L (136-145); Total Protein,Serum 7.1 g/dl (6.3-8.2)
[2021-01-03 13:26] LABS: Erythrocyte Sedimentation Rate 10 mm/hr (0-15)
[2021-01-03 14:27] LABS: C-Reactive Protein 19.9 mg/L (0-4)
[2021-01-05 18:28] LABS: Anti-Centromere B Antibodies <0.2 AI (0.0-0.9); Anti-DNA (DS) Ab Qn <1 IU/mL (0-9); Anti-Jo-1 <0.2 AI (0.0-0.9); Anti-Smith Antibody <0.2 AI (0.0-0.9); Antichromatin Antibodies <0.2 AI (0.0-0.9); Antiscleroderma-70 Antibodies <0.2 AI (0.0-0.9); RNP Antibodies <0.2 AI (0.0-0.9); Sjogren's Anti-SS-A <0.2 AI (0.0-0.9); Sjogren's Anti-SS-B <0.2 AI (0.0-0.9)
[2021-01-11 15:11] LABS: HLA-B27 Negative (.)
== END ==
PROVIDERS: PCP Physician Assistant; Visit Provider Physician Assistant
DX: M54.50 Low back pain, unspecified (principal); R70.0 Elevated erythrocyte sedimentation rate
CPT/HCPCS: 36415; 72110; 72190; 80053; 85651; 86140; 86225; 86235; 86812

== ENCOUNTER → 2021-02-22 17:57 | Outpatient (CLI) | payer OTHER, SELFPAY ==
[2021-02-22 19:02] LABS: Amphetamine/Metha Screen,Urine Negative ng/ml (<1000)
[2021-02-22 19:03] LABS: Barbiturates Screen,Urine Negative ng/ml (<200)
[2021-02-22 19:04] LABS: Benzodiazepines Screen,Urine Negative ng/ml (<200); Cannabinoid Screen,Urine Negative ng/ml (<50)
[2021-02-22 19:05] LABS: Cocaine Screen,Urine Negative ng/ml (<300); Methadone Screen,Urine Negative ng/ml (<300)
[2021-02-22 19:06] LABS: Opiate Screen,Urine Negative ng/ml (<300)
[2021-02-22 19:07] LABS: Phencyclidine Screen,Urine Negative ng/ml (<25)
== END ==
PROVIDERS: Visit Provider Physician Assistant
DX: F41.9 Anxiety disorder, unspecified (principal)
CPT/HCPCS: 80305

== ENCOUNTER → 2021-03-10 10:49 | Outpatient (CLI) | payer OTHER, SELFPAY ==
--- NOTE | 2021-03-10 10:50 | MR_ITS ---
PROCEDURE INFORMATION: Exam: MR Pelvis Without Contrast Exam date and time: 03/10/2021 10:50 AM Age: 30 years old Clinical indication: Abnormal findings; Abnormal imaging test; Additional info: Sclerotic lesion. Lbp x's years. PT states he had xray @ [facility] 01/03/21 where abnormality was found. TECHNIQUE: Imaging protocol: Magnetic resonance images of the pelvis without intravenous contrast. COMPARISON: 1. CR XR PELVIS MIN 3V 01/03/2021 11:56 AM 2. CR XR LUMBAR SPINE MIN 4V 01/03/2021 11:56 AM FINDINGS: Intraperitoneal space: No significant free fluid. Reproductive: Unremarkable. Bones/joints: The sclerotic lesions identified on prior radiographs, 2 in the left femoral neck, and 1 in the right femoral head, correspond to benign bone islands. The largest bone island measures 1.3 x 0.7 cm (series 5/image 8). No follow-up or additional workup is recommended. There is no acute fracture or dislocation. No aggressive bone lesions are present. Soft tissues: There is a small fat containing left inguinal hernia with a minimal amount of fat in the right inguinal canal. IMPRESSION: 1. Previously identified sclerotic lesions involving each proximal femur correspond to benign bone islands that do not require follow-up. 2. Small fat containing left inguinal hernia.
== END ==
PROVIDERS: PCP Physician Assistant; Visit Provider Physician Assistant
DX: R93.7 Abnormal findings on diagnostic imaging of other parts of musculoskeletal system (principal)
CPT/HCPCS: 72195

== ENCOUNTER → 2021-04-06 10:00 | Outpatient (CLI) | payer OTHER, SELFPAY ==
--- NOTE | 2021-04-06 10:05 | XR_ITS ---
FINAL REPORT CLINICAL HISTORY: left knee pain; weightbearing patient states he was told he has osteoarthritis FINDINGS: LEFT KNEE Four views of the left knee were obtained. There is no acute fracture or dislocation. Visualized joint spaces are normally aligned. There is a small joint effusion. IMPRESSION: No acute bony abnormality. Small joint effusion. Reviewed, Interpreted and Dictated by Jose A Garcia III, MD Transcribed by Esperanza Moon Authenticated by Jose A Garcia III, MD on 04/06/2021 11:21:54 AM [facility]
--- NOTE | 2021-04-06 10:05 | XR_ITS ---
FINAL REPORT CLINICAL HISTORY: right knee pain patient states she has osteoarthritis FINDINGS: RIGHT KNEE Four views of the right knee were obtained. There is no acute fracture or dislocation. Visualized joint spaces are normally aligned. Soft tissues are unremarkable. IMPRESSION: No acute bony abnormality. Reviewed, Interpreted and Dictated by Jose A Garcia III, MD Transcribed by Esperanza Moon Authenticated by Jose A Garcia III, MD on 04/06/2021 11:22:06 AM [facility]
--- NOTE | 2021-04-06 10:05 | XR_ITS ---
FINAL REPORT CLINICAL HISTORY: BL hand pain patient was told he has osteoarthitis FINDINGS: RIGHT HAND Four views were obtained. There is no acute fracture or dislocation. The joint spaces are intact. There is no soft tissue abnormality. IMPRESSION: No acute bony abnormality. Reviewed, Interpreted and Dictated by Jose A Garcia III, MD Transcribed by Esperanza Moon Authenticated by Jose A Garcia III, MD on 04/06/2021 11:27:09 AM [facility]
--- NOTE | 2021-04-06 10:05 | XR_ITS ---
FINAL REPORT CLINICAL HISTORY: BL hand pain patient states he was told he has osteoarthritis FINDINGS: LEFT HAND 3 views were obtained. There is no acute fracture or dislocation. The joint spaces are intact. There is no soft tissue abnormality. IMPRESSION: No acute bony abnormality. Reviewed, Interpreted and Dictated by Jose A Garcia III, MD Transcribed by Esperanza Moon Authenticated by Jose A Garcia III, MD on 04/06/2021 11:27:06 AM [facility]
== END ==
PROVIDERS: PCP Physician Assistant; Visit Provider Orthopaedic Surgery
DX: M25.562 Pain in left knee (principal); M25.561 Pain in right knee; M79.642 Pain in left hand; M79.641 Pain in right hand
CPT/HCPCS: 73130; 73564

== ENCOUNTER → 2021-04-12 11:10 | Outpatient (CLI) | payer OTHER, SELFPAY ==
[2021-04-12 13:52] LABS: Creatine Kinase 70 U/L (55-170)
[2021-04-12 13:58] LABS: C-Reactive Protein 6.4 mg/L (0-4)
[2021-04-13 14:50] LABS: Aldolase 4.4 U/L (3.3-10.3); Sjogren's Anti-SS-A <0.2 AI (0.0-0.9); Sjogren's Anti-SS-B <0.2 AI (0.0-0.9)
[2021-04-13 17:14] LABS: Cytoplasmic (C-ANCA) <1:20 titer (Neg:<1:20); Perinuclear (P-ANCA) <1:20 titer (Neg:<1:20)
[2021-04-13 23:42] LABS: Anti-Cyclic Citrullinated Pept 5 units (0-19)
[2021-05-10 08:05] LABS: Antinuclear Antibodies (ANA) NEGATIVE
== END ==
PROVIDERS: Internal Medicine Pulmonary Disease; PCP Physician Assistant; Visit Provider Nurse Practitioner Family
DX: R06.00 Dyspnea, unspecified (principal); J98.4 Other disorders of lung; J84.9 Interstitial pulmonary disease, unspecified; Z11.52 Encounter for screening for COVID-19
CPT/HCPCS: 36415; 82085; 82550; 86038; 86140; 86200; 86235; 86256; 86431; C9803; U0003; U0005

== ENCOUNTER 2021-04-13 14:21 | Emergency (ER) | payer OTHER, SELFPAY ==
[2021-04-13] VITALS (8 sets, daily range): BP systolic 102–150; BP diastolic 67–102; PULSE 64–94; RESP 16–32; TEMP 36.8–36.9; O2SAT 92–98; BMI 33.6
--- NOTE | 2021-04-13 14:15 | ECG_ITS ---
APPROVED REPORT Exam: Resting ECG HR:101 bpm ECG Measurements Heart Rate 101 AXES IA 163 P 65 QRSd 114 QRS 64 QT 331 T 47 QTc 389 Conclusion SINUS TACHYCARDIA POSSIBLE LEFT ATRIAL ENLARGEMENT [-0.1mV P-WAVE IN V1/V2] INCOMPLETE RIGHT BUNDLE BRANCH BLOCK [90+ ms QRS DURATION, TERMINAL R IN V1/V2, 40+ ms S IN I/aVL/V4/V5/V6] NONSPECIFIC ST ELEVATION [0.05+ mV ST ELEVATION] ABNORMAL RHYTHM ECG UNCONFIRMED REPORT Electronically signed by : Leon Monroe MD 04/13/2021 21:12:14
--- NOTE | 2021-04-13 14:22 | XR_ITS ---
FINAL REPORT CLINICAL HISTORY: cp COMPARISON: November 24, 2020 FINDINGS: Two views of the chest were obtained. The heart size and pulmonary vascularity are within normal limits. The mediastinum is normal. No acute pulmonary abnormality is identified. There is no pneumothorax. The bony thorax is intact. IMPRESSION: No active cardiopulmonary disease. Reviewed, Interpreted and Dictated by Jose A Garcia III, MD Transcribed by Aaron Soler Authenticated by Jose A Garcia III, MD on 04/13/2021 03:17:08 PM [facility]
--- NOTE | 2021-04-13 14:29 | HMH.EDGENADL ---
ED Disposition Clinical Impression: Atypical chest pain Disposition: Home, Self-Care Condition on Discharge: Good Instructions: DI for Atypical Chest Pain Additional Instructions: See Dr. Steve in his office tomorrow. Call at 9 AM to make arrangements. Additional instructions for CHEST PAIN: Return immediately if worsening chest pain, vomiting, shortness of breath, fever, coughing of blood. Referrals: Provider,Boris, [Referring] - Frank Steve MD [Staff Physician] - - Critical Care Critical Care Time: No Attestation: On 04/13/21, the high probability of a clinically significant, sudden or life threatening deterioration of the following system(s) required my full and direct attention, intervention and personal management. The time I documented below is in addition to time spent performing reported procedures but includes the following listed in this critical care notation. Medical Decision Making - Medical Records Medical records reviewed: Yes: I reviewed the patient's medical records. MR Comment: Reviewed prior stress test and echocardiogram results, see below. - Joe Inquiry Pt receiving controlled substance: No Vital Signs: 04/13/21 14:21 04/13/21 14:30 04/13/21 15:00 Temperature 98.4 F Temperature Source Oral Pulse Rate 91 H 88 Pulse Rate [Left Radial] 94 H Respiratory Rate 20 32 H 22 Blood Pressure 129/75 124/75 Blood Pressure [Left Arm] 150/102 H Blood Pressure Mean [Left Arm] 118 Blood Pressure Source Blood Pressure Source [Left Arm] Automatic Cuff Blood Pressure Position Blood Pressure Position [Left Arm] Sitting 02 Sat by Pulse Oximetry 95 94 L 93 L Oxygen Delivery Method Room Air 04/13/21 15:30 04/13/21 16:00 04/13/21 16:30 Temperature Temperature Source Pulse Rate 84 71 64 Pulse Rate [Left Radial] Respiratory Rate 21 20 16 Blood Pressure 106/67 L 115/68 113/70 Blood Pressure [Left Arm] Blood Pressure Mean [Left Arm] Blood Pressure Source Blood Pressure Source [Left Arm] Blood Pressure Position Blood Pressure Position [Left Arm] 02 Sat by Pulse Oximetry 92 L 96 94 L Oxygen Delivery Method Room Air 04/13/21 17:00 04/13/21 18:24 Temperature 98.3 F Temperature Source Oral Pulse Rate 71 72 Pulse Rate [Left Radial] Respiratory Rate 22 16 Blood Pressure 102/69 L 108/70 L Blood Pressure [Left Arm] Blood Pressure Mean [Left Arm] Blood Pressure Source Automatic Cuff Blood Pressure Source [Left Arm] Blood Pressure Position Sitting Blood Pressure Position [Left Arm] 02 Sat by Pulse Oximetry 94 L Oxygen Delivery Method Room Air - Lab Data Lab Results 04/13/21 14:26: WBC 9.2, RBC 5.11, Hgb 15.9, Hct 47.7, MCV 93.3, MCH 31.1, MCHC 33.4, RDW 13.6, Plt Count 331, MPV 7.9, Neut % (Auto) 65.5, Lymph % (Auto) 26.5, [place] % (Auto) 5.3, Eos % (Auto) 1.1, Baso % (Auto) 1.6, Neut # (Auto) 6.0, Lymph # (Auto) 2.4, [place] # (Auto) 0.5, Eos # (Auto) 0.1, Baso # (Auto) 0.2 04/13/21 14:26: Sodium 139, Potassium 4.2, Chloride 105, Carbon Dioxide 24, Anion Gap 14.2, BUN 8 L, Creatinine 1.10, Estimated Creat Clear 155, Estimated GFR 78, Est GFR ( Amer) 94, Glucose 92, Calcium 9.5, Troponin I < 0.01 04/13/21 17:27: Troponin I < 0.01 Result diagrams: 04/13/21 14:26 04/13/21 14:26 Orders (Tests/Meds): ED MEDICATIONS Discontinued Medications Generic Name Dose Route Start Last Admin Trade Name Freq PRN Reason Stop Dose Admin Aspirin 325 mg 04/13/21 14:28 04/13/21 14:35 Aspirin 325mg Tablet PO 04/13/21 14:29 325 mg ONCE ONE Administration 10/26/20 Stress test: Conclusion: Normal GXT. GXT only (no imaging). ECHO: Conclusion 1. Normal left ventricular size, preserved left ventricular systolic function, visually estimated ejection fraction 55% with no regional wall motion abnormality, diastolic parameters are within normal range. 2. Trace mitral and tric
[2021-04-13 14:36] LABS: Basophils # 0.2 K/mm3 (0-0.2); Basophils % 1.6 % (0.1-2.0); Eosinophils # 0.1 K/mm3 (0.0-0.4); Eosinophils % 1.1 % (0.1-12.0); Hematocrit 47.7 % (42.0-52.0); Hemoglobin 15.9 g/dL (14.1-18.0); Lymphocytes # 2.4 K/mm3 (0.7-4.5); Lymphocytes % 26.5 % (10-50); Mean Corpuscular HGB Conc 33.4 g/dL (31.8-35.4); Mean Corpuscular Hemoglobin 31.1 pg (27.0-31.2); Mean Corpuscular Volume 93.3 fl (80-94); Mean Platelet Volume 7.9 fl (7.4-10.4); Monocytes # 0.5 K/mm3 (0.1-1.0); Monocytes % 5.3 % (1.7-9.3); Neutrophils % 65.5 % (37.0-80.0); Platelet Count 331 K/mm3 (142-424); Red Blood Count 5.11 M/mm3 (4.60-6.20); Red Cell Distribution Width 13.6 % (11.5-17.5); White Blood Count 9.2 K/mm3 (4.8-10.8)
[2021-04-13 14:38] LABS: Chloride 105 mmol/L (98-107); Potassium 4.2 mmoL/L (3.5-5.1); Sodium 139 mmol/L (136-145)
[2021-04-13 14:41] LABS: Anion Gap 14.2 mEq/L (5-15); Blood Urea Nitrogen 8 mg/dl (9-20); Calcium 9.5 mg/dl (8.4-10.2); Carbon Dioxide 24 mmol/L (22.0-30.0); Creatinine Clearance Estimated 155 mL/min (50-200); Estimated Glomerular Filt Rate 78 ml/min (>60); GFR (African American) 94 ML/MIN (>60); Glucose 92 mg/dl (74-100)
[2021-04-13 14:56] LABS: Troponin I < 0.01 ng/ml (0.00-0.034)
[2021-04-13 18:01] LABS: Troponin I < 0.01 ng/ml (0.00-0.034)
--- NOTE | 2021-04-13 18:01 | PC.NURSE ---
Updated patient on POC. Waiting on to release which had approx 3 mins left.
== END 2021-04-13 18:26 | disposition home or self-care (01) ==
PROVIDERS: Emergency Provider Emergency Medicine; PCP Physician Assistant
DX: R07.89 Other chest pain (principal); F41.8 Other specified anxiety disorders; I10 Essential (primary) hypertension
CPT/HCPCS: 36415; 71046; 80048; 84484; 85025; 93005; 99283

== ENCOUNTER → 2021-04-13 20:17 | Outpatient (CLI) | payer OTHER, SELFPAY | PROVIDERS: PCP Physician Assistant; Visit Provider Nurse Practitioner Family | DX: R09.02 Hypoxemia (principal); G47.33 Obstructive sleep apnea (adult) (pediatric) | CPT/HCPCS: 95810 ==

== ENCOUNTER → 2021-04-18 14:28 | Outpatient (CLI) | payer OTHER, SELFPAY ==
--- NOTE | 2021-04-18 14:28 | MR_ITS ---
FINAL REPORT CLINICAL HISTORY: LT hand pain FINDINGS: Multiplanar MR imaging was obtained of the left hand. Positioning is suboptimal with flexion of the second and third metacarpophalangeal joints. Some of the sequences are degraded by patient motion. There is questionable edema in the second distal phalange which is not confirmed on other sequences. No localized soft tissue inflammation is identified. The flexor and extensor tendons appear intact. Nonstandard positioning limits evaluation. IMPRESSION: Suboptimal exam secondary to non-standard positioning. Questionable edema in the second distal phalange seen on one sequence only. Reviewed, Interpreted and Dictated by Jani Bowie MD Transcribed by Jes Guerrero Authenticated by Jani Bowie MD on 04/18/2021 04:50:52 PM [facility]
== END ==
PROVIDERS: Visit Provider Orthopaedic Surgery
DX: M79.642 Pain in left hand (principal)
CPT/HCPCS: 73218

== ENCOUNTER → 2021-04-25 09:59 | Outpatient (POV) | payer OTHER, SELFPAY ==
[2021-04-25 10:35] VITALS: BP 162/79; PULSE 94; RESP 18; O2SAT 96; BMI 33.9
--- NOTE | 2021-04-25 19:45 | HMH.PMCON ---
Assessment and Plan (1) Degenerative joint disease (DJD) of lumbar spine Status: Acute Category: Medical Code(s): M47.816 - Spondylosis without myelopathy or radiculopathy, lumbar region (2) Facet arthropathy Status: Acute Category: Medical Code(s): M47.819 - Spondylosis without myelopathy or radiculopathy, site unspecified - Assessment and plan all Dx Assessment and Plan for all problems:: The patient does not have recent imaging of his thoracic or lumbar spine. We will order MRI of his thoracic lumbar/spine and plan to see him back afterwards for further evaluation. He has been instructed to contact clinic if he has any concerns for his next appointment. Patient has been instructed to contact the clinic with any concerns before the next appointment. Dr. Sullivan has reviewed this note and agrees with this plan of care. This note was dictated using voice recognition software and make contain errors or omissions. HPI - Data of Consult Patient: new to practice Consult date: 04/25/21 Requesting Physician: Carito Castillo APRN - Consult Narrative Reason for consult: Low back pain History of present illness: Mr. Wright is a 30 year old male who presents today for consultation for chronic low back pain. Patient says that he has had years of low back pain. He says the pain is in the middle of his low back area and into the right low back area. He denies the pain radiating into bilateral lower extremities or buttock. He denies pain radiating into hips. He is not having any saddle anesthesia or changes in bowel or bladder habit. Pain is made worse when leaning forward or extension at waist. He does report the pain has started to present in his mid back area as well. He has seen his PCP and was concerned of pleuritic type pain. He says the pain is radicular from the mid back into the left flank area. Today, his pain is a 0 out of 10. The pain is present with sweeping and mopping and lawnmowing. He says that it is sharp in nature. He has tried home stretching in the past. He is currently taking anti-inflammatories. CC: Carito Castillo APRN [facility] History I have reviewed the patient's past medical history: Yes Medical History: Reports:: Anxiety, Depression, Hypertension, Migraine *Have you ever received a pneumonia vaccine?: No *Have you received a flu vaccine this season?: No Other Medical History: Reports: Other Other Surgeries: Yes: Other Amputation: No Fractures: Yes - *Social History Smoking Status: Never smoker Alcohol Intake: current Alcohol Intake Frequency:: holidays/special occasions only Substance Use Type: denies use *Occupational Status:: unemployed Housing: house Household Members: spouse, children *Travel in the last 8 weeks: None - Psychiatric History Pschychiatric History:: Reports:: Anxiety, Depression Family Hx:: Cancer, Hyperlipidemia, Hypertension, Thyroid Disorder Review of Systems - Review of Systems Review of Systems General: No recent weight changes, no fever, no sleep disturbances Respiratory: No cough, no shortness of air, no recurring pulmonary infections Cardiovascular/peripheral vascular: No chest pain, no palpitations, no edema, no shortness of breath Gastrointestinal: No new onset incontinence, normal bowel movements reported Genitourinary: No new onset incontinence Musculoskeletal: Low back pain made worse with bending forward and extension at waist Psychiatric: [Normal mood/affect] Neurological: [Denies weakness in extremities], [denies balance issues] Meds Home Medications Medication Instructions Recorded Confirmed Type buspirone 5 mg tablet 5 mg PO BID #60 tab 02/22/21 04/17/21 Rx clonazepam 2 mg tablet 2 mg PO BID #60 tab 02/22/21 04/17/21 Rx etodolac 400 mg tablet 400 mg PO BID #60 tab 02/22/21 04/17/21 Rx lamotrigine 150 mg tablet 150 mg PO BID #60 tab 02/22/21 04/17/21 Rx lisinopril 10 mg tablet 10 mg PO DAILY #90 tab 02/22/21 04/17/21
== END ==
PROVIDERS: Visit Provider Clinical Nurse Specialist Family Health
DX: M47.816 Spondylosis without myelopathy or radiculopathy, lumbar region (principal)
CPT/HCPCS: 99202; G0463

== ENCOUNTER → 2021-05-01 13:29 | Outpatient (CLI) | payer OTHER, SELFPAY ==
--- NOTE | 2021-05-01 13:30 | HMH.PMPROC ---
- Procedure Date: 05/01/21 Time: 13:30 Anesthesiologist:: Carito Castillo APRN Complications:: None Pre-procedure Diagnosis:: Degenerative disc disease lumbar spine with lumbar radiculopathy symptoms Post-procedure Diagnosis:: Same Indications for Procedure:: Patient is a pleasant 30 year old Procedure Details:: Informed consent was obtained and the risk and benefits of the procedure were explained to the patient. The patient was taken to the procedure room where noninvasive monitoring was placed including noninvasive blood pressure cuff and pulse oximeter. Patient's pump was interrogated. The area over the pump was cleansed with chlorhexidine as a cleansing solution. In sterile fashion the pump was accessed with a 22-gauge needle. Approximately [] mls of the pump solution was removed and discarded appropriately. The pump was then refilled with 20 mL's of []. The needle was withdrawn and a bandage was placed over the puncture site. The infusion rate was reprogrammed at []. The patient tolerated well with no complication. Plan and Disposition:: We will see the patient back in the clinic at the next intrathecal refill. Patient has been instructed to contact the clinic with any concerns before the next appointment. Dr. Sullivan has reviewed this note and agrees with this plan of care. This note was dictated using voice recognition software and make contain errors or omissions. Risks and benefits of the medication have been explained in detail to the patient. The patient does understand the risk of dependence on the medication when given over a prolonged period. Patient has been advised of risks of oversedation with the prescribed medication. Narcan has been offered to the paitent in the event of oversedation. Patient has been advised that a family member should also be educated regarding administration of Narcan. The patient has been advised to consult with his/her primary care provider and pharmacist regarding drug-drug interaction of medications currently prescribed. ELAINE report has been obtained and reviewed prior to prescription and found to be appropriate. Opioid contract was reviewed and signed by the patient, and that they have agreed to all of the terms set forth by our compliance program. Patient has been instructed to contact the clinic with any concerns before the next appointment. Dr. Sullivan has reviewed this note and agrees with this plan of care. This note was dictated using voice recognition software and make contain errors or omissions.
--- NOTE | 2021-05-01 13:32 | MR_ITS ---
FINAL REPORT CLINICAL HISTORY: MID BACK PAIN, LOW BACK PAIN. LBP X2YRS.. PRIOR X-RAY 01-03-21. NO INJURY OR TRAUMA FINDINGS: Multiplanar MR imaging of the lumbar spine was performed without contrast. On the sagittal T2-weighted images, disc degeneration is seen at L4-5. The vertebral alignment is normal. There is no evidence of fracture. No bony mass is identified. The conus is seen at approximately the L1 level and has an unremarkable appearance. T12-L1: There is no significant central canal stenosis or neuroforaminal narrowing. L1-2: There is no significant canal stenosis or neural foraminal narrowing. L2-3: There is no significant canal stenosis or neural foraminal narrowing. L3-4: There is no significant canal stenosis or neural foraminal narrowing. L4-5: There is annular disc bulge and right posterolateral annular tear and disc protrusion. There is moderate right neuroforaminal narrowing. L5-S1: There is no significant canal stenosis or neural foraminal narrowing. IMPRESSION: Right posterolateral annular tear and disc protrusion at L4-5 with moderate right neuroforaminal narrowing. Reviewed, Interpreted and Dictated by Jose A Garcia III, MD Transcribed by Marlene Golden Authenticated by Jose A Garcia III, MD on 05/01/2021 04:12:43 PM [facility]
--- NOTE | 2021-05-01 13:32 | MR_ITS ---
FINAL REPORT CLINICAL HISTORY: MID BACK PAIN, LOW BACK PAIN. MID BACK PAIN WHEN BREATHING [id number]. NO INJURY OR TRAUMA. PAIN WORSE ON LT SIDE. NO INJURY OR TRAUMA. FINDINGS: Multiplanar MR imaging of the thoracic spine was performed without contrast. On the sagittal T2-weighted images, disc degeneration is seen at multiple levels. There is no evidence of fracture. The vertebral alignment is normal. The thoracic spinal cord has an unremarkable appearance without evidence of mass, edema or syrinx. There is no evidence of significant canal stenosis or cord compression. On the axial images, disc bulges seen at the T8-9 level. No focal soft disc protrusion is identified. There is no evidence of significant canal stenosis or cord compression. No paraspinous soft tissue abnormality is identified. IMPRESSION: Multilevel mild degenerative disc disease and spondylosis. No focal soft disc protrusion or significant central canal stenosis. Reviewed, Interpreted and Dictated by Jose A Garcia III, MD Transcribed by Marlene Golden Authenticated by Jose A Garcia III, MD on 05/01/2021 04:12:56 PM [facility]
[2021-05-01 18:13] LABS: Basophils % 0.5 % (0.1-2.0); Eosinophils # 0.1 K/mm3 (0.0-0.4); Eosinophils % 1.3 % (0.1-12.0); Hematocrit 46.6 % (42.0-52.0); Hemoglobin 15.5 g/dL (14.1-18.0); Lymphocytes # 1.4 K/mm3 (0.7-4.5); Lymphocytes % 17.5 % (10-50); Mean Corpuscular HGB Conc 33.2 g/dL (31.8-35.4); Mean Corpuscular Hemoglobin 30.7 pg (27.0-31.2); Mean Corpuscular Volume 92.3 fl (80-94); Mean Platelet Volume 8.2 fl (7.4-10.4); Monocytes # 0.4 K/mm3 (0.1-1.0); Monocytes % 4.6 % (1.7-9.3); Neutrophils # 5.9 K/mm3 (1.8-7.8); Neutrophils % 76.1 % (37.0-80.0); Platelet Count 308 K/mm3 (142-424); Red Blood Count 5.05 M/mm3 (4.60-6.20); Red Cell Distribution Width 13.8 % (11.5-17.5); White Blood Count 7.7 K/mm3 (4.8-10.8)
[2021-05-01 18:46] LABS: 25-OH Vitamin D, Total 34.8 ng/mL (30-100)
[2021-05-01 18:50] LABS: Alanine Aminotransferase 57 U/L (12-78); Albumin Level 4.8 g/dl (3.5-5.0); Albumin/Globulin Ratio 2.1 (1.1-1.8); Alkaline Phosphatase 89 U/L (38-126); Anion Gap 15.3 mEq/L (5-15); Aspartate Amino Transferase 38 U/L (17-59); Bilirubin,Total 0.6 mg/dl (0.2-1.3); Blood Urea Nitrogen 13 mg/dl (9-20); Calcium 10.1 mg/dl (8.4-10.2); Carbon Dioxide 28 mmol/L (22.0-30.0); Chloride 101 mmol/L (98-107); Chol/HDL Ratio 6.6 (1-3.5); Cholesterol 212 mg/dl (140-200); Estimated Glomerular Filt Rate 98 ml/min (>60); GFR (African American) 119 ML/MIN (>60); Globulin 2.3 g/dL (1.3-3.2); Glucose 97 mg/dl (74-100); HDL Cholesterol 32 mg/dl (40-60); Potassium 4.3 mmoL/L (3.5-5.1); Sodium 140 mmol/L (136-145); Total Protein,Serum 7.1 g/dl (6.3-8.2); Triglycerides 240 mg/dl (30-150); VLDL Cholesterol 48 mg/dL (0-40)
[2021-05-01 19:00] LABS: Direct LDL Cholesterol 149.74 mg/dL (100-129)
[2021-05-01 19:19] LABS: Thyroid Stimulating Hormone 2.18 uIU/mL (0.465-4.68)
== END ==
PROVIDERS: PCP Physician Assistant; Visit Provider Clinical Nurse Specialist Family Health
DX: E03.9 Hypothyroidism, unspecified (principal); E66.9 Obesity, unspecified; M54.6 Pain in thoracic spine; M54.50 Low back pain, unspecified; Z68.35 Body mass index [BMI] 35.0-35.9, adult
CPT/HCPCS: 72146; 72148; 76376; 80053; 80061; 82306; 84443; 85025

== ENCOUNTER → 2021-05-01 16:00 | Outpatient (CLI) | payer OTHER, SELFPAY | PROVIDERS: Visit Provider Physician Assistant | DX: R91.1 Solitary pulmonary nodule (principal) ==

== ENCOUNTER → 2021-05-02 14:49 | Outpatient (CLI) | payer OTHER, SELFPAY ==
--- NOTE | 2021-05-02 14:49 | CT_ITS ---
FINAL REPORT TECHNIQUE: Axial CT images were performed from the lung apices through the upper abdomen. Coronal reformats were submitted. This study was performed with techniques to keep radiation doses as low as reasonably achievable (ALARA). Individualized dose reduction techniques using automated exposure control or adjustment of mA and/or kV according to the patient's size were employed. CLINICAL HISTORY: .left lung nodule COMPARISON: 12/30/2020 FINDINGS: There is no axillary adenopathy. There is no hilar or mediastinal mass or adenopathy. Heart size is normal. There is no pericardial or pleural effusion. Limited images of the upper abdomen are unremarkable. No suspicious infiltrate or nodule is identified on lung window images. There is mild right middle lobe scarring. IMPRESSION: No acute process. Reviewed, Interpreted and Dictated by Jose A Garcia III, MD Transcribed by Nalini Patrick Authenticated by Jose A Garcia III, MD on 05/02/2021 04:13:26 PM [facility]
== END ==
PROVIDERS: PCP Physician Assistant; Visit Provider Internal Medicine Pulmonary Disease
DX: R06.02 Shortness of breath (principal)
CPT/HCPCS: 71250

== ENCOUNTER → 2021-05-08 10:25 | Outpatient (POV) | payer OTHER, SELFPAY ==
[2021-05-08 10:38] VITALS: BP 147/68; PULSE 88; RESP 20; TEMP 37.1; O2SAT 96; BMI 34.3
--- NOTE | 2021-05-08 11:28 | P.CONS_ITS ---
[facility] Pain Management SOAP Note Subjective:: Patient is a very pleasant 30-year-old white male who presents today for follow- up. He is currently being treated for degenerative disc disease of the thoracic and lumbar spine. He continues to experience mid back pain that radiates anteriorly as well as chronic low back pain. He denies any radiation of pain into his legs. He describes the pain as a dull aching pain that is worse with leaning forward or extension at the waist. He states that with mid mid back pain there is concern for pleuritic type pain and he is scheduled to be evaluated by a loading machine adjuster for this. At the last visit MRI of the thoracic and lumbar spines were ordered which demonstrated a disc bulge at T8-T9 as well as an annular disc bulge and right posterior annular tear and disc protrusion at L4-L5 as well as moderate right foraminal narrowing at this level. He states his worst pain is the low back pain at this time and he denies any radicular pain into his legs at this time. He is currently taking clonazepam 2 mg twice daily that is prescribed by Alma Cabrera but is not taking any controlled pain medications at this time review of the Joe report. He rates his pain today as a 7 out of 10. Objective:: General: Alert and oriented x3, no acute distress, pleasant and cooperative Lungs: Resps E/U, symmetric chest expansion Eyes: PERRL Musculoskeletal: limited flexion and extension of the lumbar spine secondary to pain. Deep tendon reflexes were normal in bilateral lower extremities. Motor exam was grossly intact in the bilateral lower extremities Neurological: Speech is clear, supervisor lump room equal, no gross sensory deficits Assessment:: Degenerative disc disease of the lumbar spine Lumbar radiculopathy Degenerative disease of the thoracic spine Thoracic radiculopathy Plan:: I discussed with the patient that we will schedule him for a lumbar epidural steroid injection at L4-L5 under fluoroscopy #1. We will schedule him for the above injection to be performed in 2 to 3 weeks. In the future the patient may benefit from thoracic epidural steroid injection under fluoroscopy at T8-T9 chronic mid back pain related symptoms. Joe #[id number] and prior drug screens were reviewed and appropriate. [facility] History Medical History: Reports:: Anxiety, Depression, Hypertension, Migraine *Have you ever received a pneumonia vaccine?: No *Have you received a flu vaccine this season?: No Other Medical History: Reports: Other Other Surgeries: Yes: Other Amputation: No Fractures: Yes - *Social History Smoking Status: Never smoker Alcohol Intake: current Alcohol Intake Frequency:: holidays/special occasions only Substance Use Type: denies use *Occupational Status:: employed Housing: house Household Members: spouse, children *Travel in the last 8 weeks: None - Psychiatric History Pschychiatric History:: Reports:: Anxiety, Depression Family Hx:: Cancer, Hyperlipidemia, Hypertension, Thyroid Disorder
== END ==
PROVIDERS: Visit Provider Anesthesiology Pain Medicine
DX: M51.16 Intervertebral disc disorders with radiculopathy, lumbar region (principal); M51.14 Intervertebral disc disorders with radiculopathy, thoracic region
CPT/HCPCS: 99212; G0463

== ENCOUNTER 2021-05-26 10:43 | Day surgery (SDC) | payer OTHER, SELFPAY ==
[2021-05-26 10:51] VITALS: BP 150/94; BP 152/94; BP 166/80; PULSE 92; PULSE 94; RESP 17; RESP 18; RESP 20; TEMP 36.8; O2SAT 97; O2SAT 99; BMI 34.4
--- NOTE | 2021-05-26 11:15 | HMH.PMPROC ---
- Procedure Date: 05/26/21 Time: 11:15 Anesthesiologist:: Santosh Sullivan MD Complications:: None Pre-procedure Diagnosis:: Degenerative disc disease of lumbar spine with lumbar radiculopathy symptoms Post-procedure Diagnosis:: Same Indications for Procedure:: This patient a pleasant 30-year-old white male who we are treating for low back pain with lumbar radiculopathy symptoms. He has increasing pain in his back. There is not really much radiation. We will plan on lumbar pleural steroid injection under fluoroscopy today to see if this helps with his pain symptoms. Procedure Details:: Informed consent was obtained and the risk and benefits of the procedure was explained to the patient. The patient was taken to the procedure room. The patient was placed prone on the procedure table. The patient was prepped and draped in sterile fashion. C-arm fluoroscopy was used to view the lumbar spine. Skin and subcutaneous tissues were anesthetized using lidocaine. I placed an 18-gauge epidural needle and advanced into the L4-L5 interspace using fluoroscopic guidance and [id number] to air. After confirmation of needle placement in the epidural space with dye I injected 2 mL of lidocaine 1.5% with Depo-Medrol 80 mg. Patient tolerated the procedure well with no complications. Plan and Disposition:: We will follow-up with him in 2 weeks. Will reevaluate symptoms at that time. If he does not get long-term relief from these injections he may be a candidate for bilateral facet joint injection/medial branch blocks of L3-4 and L4-5.
[2021-05-26 11:25] VITALS: BP 148/79; PULSE 84; RESP 20; O2SAT 99
== END 2021-05-26 11:25 | disposition home or self-care (01) ==
LOC: SC.PAINP 10:44
PROVIDERS: PCP Physician Assistant; Visit Provider Anesthesiology
DX: M51.16 Intervertebral disc disorders with radiculopathy, lumbar region (principal); I10 Essential (primary) hypertension; F41.9 Anxiety disorder, unspecified; F32.A Depression, unspecified
CPT/HCPCS: 62323; J1040; Q9966

== ENCOUNTER → 2021-06-07 12:52 | Outpatient (CLI) | payer OTHER, SELFPAY | PROVIDERS: Visit Provider Internal Medicine Pulmonary Disease | DX: R06.02 Shortness of breath (principal); Z01.812 Encounter for preprocedural laboratory examination; Z11.52 Encounter for screening for COVID-19 | CPT/HCPCS: C9803; U0003; U0005 ==

== ENCOUNTER 2021-06-15 14:35 | Emergency (ER) | payer OTHER, SELFPAY ==
[2021-06-15 15:15] VITALS: BP 136/90; PULSE 96; RESP 18; TEMP 37; O2SAT 98; BMI 34.5
--- NOTE | 2021-06-15 15:48 | HMH.EDUTC ---
[facility] Disposition Clinical Impression: Back strain Qualifiers: Encounter type: initial encounter Qualified Code(s): S39.012A - Strain of muscle, fascia and tendon of lower back, initial encounter Disposition: Home, Self-Care Condition on Discharge: Good Instructions: Low Back Pain (Alternative Therapy), Cyclobenzaprine, Methylprednisolone, DI for Back Strain or Sprain Additional Instructions: Wear Wrist splint may help with pain and discomfort *Not additional anti-inflammatory like Ibuprofen motrin, aleve, advil with the prescribed amount of etodolac You can still take Tylenol every 4 hours as needed if you need something else for pain *Ice 20 minutes every 2 hours for the first 48 hours after the initial injury followed by moist heat every 20 minutes 3-4 times a day to affected area *Muscle relaxer every 8 hours as needed for muscle spasms but remember, it WILL cause drowsiness You cannot take it and drive, operate machinery or care for small children. *Keep this area active, no movement leads to more stiffness, However take it easy and avoid heavy lifting pushing or pulling *Follow up with you family doctor if no improvement for further treatment Return if needed Prescriptions: Cyclobenzaprine HCl [Flexeril 10mg tablet] 10 mg PO TID PRN #15 tab PRN Reason: Muscle Spasm Transmission Status: Received by [facility] methylPREDNISolone [Medrol 4mg tab] 4 mg PO DIRECTED #21 tab Transmission Status: Received by [facility] Referrals: Alma Cabrera PA [Primary Care Provider] - As needed Time of Disposition: 16:07 Medical Decision Making - Joe Inquiry Pt receiving controlled substance: No Joe was queried for this patient: No Vital Signs: 06/15/21 15:15 06/15/21 16:07 Temperature 98.6 F 98.6 F Temperature Source Oral Pulse Rate 96 H Pulse Rate [Right Brachial] 96 H Respiratory Rate 18 18 Blood Pressure 136/90 Blood Pressure [Right Arm] 136/90 Blood Pressure Mean [Right Arm] 105 Blood Pressure Source [Right Arm] Automatic Cuff Blood Pressure Position [Right Arm] Sitting 02 Sat by Pulse Oximetry 98 Oxygen Delivery Method Room Air [facility] HPI - General Stated complaint: back and wrist pain Time Seen by Provider: 06/15/21 15:48 Mode of Arrival: Ambulatory Source of Information: Patient Limitations: No Limitations Description of Symptoms (Recalled from Triage Doc. by RN): PATIENT C/O MIDDLE AND LOWER BACK PAIN AND RIGHT WRIST PAIN X 4 DAYS HEENT Symptoms (Recalled from RN notes): No Resp Symptoms (Recalled from RN notes): No Skin Symptoms (Recalled from RN notes): No MS Symptoms (Recalled from RN notes): Yes Functional Status (Recalled from RN notes): WNL - History of Present Illness Provider Complaint: Patient states that he has back problems State that he was at work and was on a process that he was bent over and twisting alot and thinks he aggrivated his back and has been having muscle spasms and pain in his right shoulder area that goes into shoulder and hurts when he moves it or raises it States that also his right wrist has been having pain too but has arthritis in it and thinks it just flared it up denies known injury - Related Data Previous Rx's Medication Instructions Recorded buspirone 5 mg tablet 5 mg PO BID #180 tab 06/01/21 clonazepam 2 mg tablet 2 mg PO BID #60 tab 06/01/21 etodolac 400 mg tablet 400 mg PO BID #60 tab 06/01/21 lamotrigine 150 mg tablet 150 mg PO BID #180 tab 06/01/21 lisinopril 10 mg tablet 10 mg PO DAILY #90 tab 06/01/21 metoprolol succinate 50 mg 50 mg PO DAILY #90 tab 06/01/21 tablet,extended release 24 hr quetiapine 50 mg tablet 50 mg PO HS #90 tab 06/01/21 Cyclobenzaprine HCl [Flexeril 10mg 10 mg PO TID PRN #15 tab 06/15/21 tablet] methylPREDNISolone [Medrol 4mg 4 mg PO DIRECTED #21 tab 06/15/21 tab] Allergies Allergy/AdvReac Type Severity Reaction Status Date / Time No Known Allergies Allergy Verified
[2021-06-15 16:07] VITALS: BP 136/90; PULSE 96; RESP 18; TEMP 37; O2SAT 98
== END 2021-06-15 16:10 | disposition home or self-care (01) ==
PROVIDERS: Emergency Provider Nurse Practitioner; PCP Physician Assistant
DX: S39.012A Strain of muscle, fascia and tendon of lower back, initial encounter (principal); R07.9 Chest pain, unspecified; M25.511 Pain in right shoulder; M25.531 Pain in right wrist; R94.31 Abnormal electrocardiogram [ECG] [EKG]; R06.00 Dyspnea, unspecified; I10 Essential (primary) hypertension; M47.896 Other spondylosis, lumbar region; R40.0 Somnolence; E55.9 Vitamin D deficiency, unspecified; Q67.6 Pectus excavatum; F31.9 Bipolar disorder, unspecified; F41.9 Anxiety disorder, unspecified; Z79.52 Long term (current) use of systemic steroids; Z79.899 Other long term (current) drug therapy; G43.909 Migraine, unspecified, not intractable, without status migrainosus
CPT/HCPCS: 99213; G0463

== ENCOUNTER → 2021-06-16 09:51 | Outpatient (CLI) | payer OTHER, SELFPAY | PROVIDERS: PCP Physician Assistant; Visit Provider Internal Medicine Pulmonary Disease | DX: R06.00 Dyspnea, unspecified (principal) | CPT/HCPCS: 94060; 94618; 94640; 94727; 94729 ==

== ENCOUNTER → 2021-06-22 11:43 | Outpatient (POV) | payer OTHER, SELFPAY ==
[2021-06-22 11:51] VITALS: BP 157/91; PULSE 82; RESP 18; TEMP 36.9; O2SAT 96; BMI 33.7
--- NOTE | 2021-06-22 12:56 | HMH.PAINSOAP ---
[facility] Pain Management SOAP Note Subjective:: Patient is a pleasant 30-year-old male who is here for a follow up after lumbar epidural steroid injection on May 26, 2021. Patient is currently being treated for low back pain. After the procedure, patients reports minimal relief. Patient says that he continues to have low back pain especially when he leans forward. He does have disc bulges and annular tears in his lumbar spine. He says that the pain is mainly around his tailbone. He reports no pain when he is sitting and not doing anything. Patient denies any issues after the procedure. He rates his pain a 0/10 when sitting and 10/10 when he leans forward. For pain, he is taking etodolac which provides minimal relief. Review of Systems: General: No recent weight changes, no fever, no sleep disturbances Respiratory: No cough, no shortness of air, no recurring pulmonary infections Cardiovascular/peripheral vascular: No chest pain, no palpitations, no edema, no shortness of breath Gastrointestinal: No new onset incontinence, normal bowel movements reported Genitourinary: No new onset incontinence Musculoskeletal: Low back pain Psychiatric: [Normal mood/affect] Neurological: [Denies weakness in extremities], [denies balance issues] Objective:: Physical Exam: General: Alert and oriented x3, no acute distress, pleasant and cooperative, [on room air] Lungs: Respirations even and unlabored, symmetrical chest expansion Eyes: PERRL Musculoskeletal: Flexion and extension of [sacral/coccyx] [spine] somewhat guarded secondary to pain, tender to palpation around his sacrum/coccyx Neurological: Speech clear, no gross sensory deficit Assessment:: Coccydynia Degenerative disc disease of lumbar spine with lumbar radiculopathy symptoms Plan:: Ordering Physician: Carito Castillo APRN Date of Service: 05/01/21 Procedure(s): MR thoracic spine [facility] Accession Number(s): [id number] FINDINGS: Multiplanar MR imaging of the thoracic spine was performed without contrast. On the sagittal T2-weighted images, disc degeneration is seen at multiple levels. There is no evidence of fracture. The vertebral alignment is normal. The thoracic spinal cord has an unremarkable appearance without evidence of mass, edema or syrinx. There is no evidence of significant canal stenosis or cord compression. On the axial images, disc bulges seen at the T8-9 level. No focal soft disc protrusion is identified. There is no evidence of significant canal stenosis or cord compression. No paraspinous soft tissue abnormality is identified. IMPRESSION: Multilevel mild degenerative disc disease and spondylosis. No focal soft disc protrusion or significant central canal stenosis. Reviewed, Interpreted and Dictated by Jose A Garcia III, MD Transcribed by Marlene Golden LUMBAR MRI: FINDINGS: Multiplanar MR imaging of the lumbar spine was performed without contrast. On the sagittal T2-weighted images, disc degeneration is seen at L4-5. The vertebral alignment is normal. There is no evidence of fracture. No bony mass is identified. The conus is seen at approximately the L1 level and has an unremarkable appearance. T12-L1: There is no significant central canal stenosis or neuroforaminal narrowing. L1-2: There is no significant canal stenosis or neural foraminal narrowing. L2-3: There is no significant canal stenosis or neural foraminal narrowing. L3-4: There is no significant canal stenosis or neural foraminal narrowing. L4-5: There is annular disc bulge and right posterolateral annular tear and disc protrusion. There is moderate right neuroforaminal narrowing. L5-S1: There is no significant canal stenosis or neural foraminal narrowing. IMPRESSION: Right posterolateral annular tear and disc protrusion at L4-5 with moderate right neuroforaminal narrowing. Reviewed, Interpreted and Dictated by Jose A Garcia III, MD Transcribed by Marlene Golden Auth
== END ==
PROVIDERS: Visit Provider Student in an Organized Health Care Education/Training Program
DX: M53.3 Sacrococcygeal disorders, not elsewhere classified (principal); M51.16 Intervertebral disc disorders with radiculopathy, lumbar region
CPT/HCPCS: 99212; G0463

== ENCOUNTER → 2021-07-03 13:55 | Outpatient (POV) | payer OTHER, SELFPAY ==
[2021-07-03 14:55] VITALS: BP 151/114; PULSE 94; RESP 18; TEMP 37.2; O2SAT 96; BMI 33.3
== END ==
PROVIDERS: Visit Provider Student in an Organized Health Care Education/Training Program
DX: M51.16 Intervertebral disc disorders with radiculopathy, lumbar region (principal); M53.3 Sacrococcygeal disorders, not elsewhere classified
CPT/HCPCS: 99212; G0463

== ENCOUNTER 2021-07-03 16:30 | Outpatient (RCR) | payer OTHER, SELFPAY ==
--- NOTE | 2021-06-28 17:44 | HMH.PTOPEV ---
PT Outpatient Evaluation Rehab PT Outpatient Evaluation Start: 06/28/21 15:56 Freq: Status: Active Protocol: Document 06/28/21 15:56 ARON (Rec: 06/28/21 17:44 ARON [id number]) Electronically Signed By Jaswinder Piper, PT 06/28/21 15:56 Outpatient Therapy Subjective History Subjective History This is the initial Physical therpay evaluation for Khanh Wright. Pt is a 30 y/o mlae referred to PT for c/o lumbar and thoracic pain. Pt reports LBP started ~ years ago - pt reports thoracic pain started ~8-9 months ago. Pt states insidious onset for both pains. Pt states he had epidural shot and steroids but neither really got rid of pain. Pt states his pain increases when he flexes forward, has some rotational movement like vacuum, sweeping , or mopping and does this for extended periods of time. Chief Complaint Pain,Stiff Symptom Type Ache,Throb,Sharp,Dull,Stabbing Symptoms Relieved By Rest/Positioning Symptoms Aggravated By Bending/Stooping,Physical Activity,Twisting Prior Functional Limitations None Current Functional Limitations Housework,Recreation Activity, Balance Symptom Description Constant but Variable Level of pain today (0-10) 1 Pain scale - at its best (0-10) 1 Pain scale - at its worst (0-10) 9 Lumbopelvic Eval Posture Lumbar Spine Posture Standing Position Flattened Assistive device Assistive Devices None / NA Palapation tenderness bilateral thoracic spinal tenderness Yes lumbar spinal tenderness Yes paraspinal tenderness Yes buttock tenderness No tenderness over symphysis pubis No Lumbar/Sacral Palpation Findings Tenderness,Muscle Guarding Accessory Movement T10 bilateral T11 bilateral L4 bilateral L5 bilateral Range of Motion Lumbar Spine Active Flexion Range of 70 Motion (degrees) Lumbar Spine Active Extension Range of 40 Motion (degrees) Left Lumbar Spine Lateral Flexion Active 30 Range of Motion (degrees) Right Lumbar Spine Lateral Flexion 30 Active Range of Motion (degrees) Lumbar Spine ROM Reason Not Measured With
--- NOTE | 2021-07-03 15:23 | HMH.PAINSOAP ---
[facility] Pain Management SOAP Note Subjective:: Patient is a pleasant 30-year-old female who presents today for follow-up. Patient is currently being treated for degenerative disc disease of lumbar spine with lumbar radiculopathy symptoms, and coccydynia. We have tried lumbar epidural steroid injection with the patient that provided very minimal relief. Patient states that he has a lot of pain whenever he leans forward. He has disc bulges and annular tears in his lumbar spine. When I last saw this patient, I started him on low-dose prednisone for a week and diclofenac 50 mg 3 times a day. Patient states that he was unable to get the diclofenac but he did take the prednisone for the whole week. He did not see any difference in his pain when he took the prednisone. Today, patient states that he gets intermittent low back pain. He rates his pain a 0 out of 10 today. He states that he gets random flareups especially when he starts doing activities. He has been managing this pain with lidocaine patches, physical therapy, and at home exercises. He is taking clonazepam 2 mg twice a day that is written by Alma Cabrera. [facility] #[id number] with an active morphine equivalent of 0. Review of Systems: General: No recent weight changes, no fever, no sleep disturbances Respiratory: No cough, no shortness of air, no recurring pulmonary infections Cardiovascular/peripheral vascular: No chest pain, no palpitations, no edema, no shortness of breath Gastrointestinal: No new onset incontinence, normal bowel movements reported Genitourinary: No new onset incontinence Musculoskeletal: Low back pain Psychiatric: [Normal mood/affect] Neurological: [Denies weakness in extremities], [denies balance issues] Objective:: Physical Exam: General: Alert and oriented x3, no acute distress, pleasant and cooperative, [on room air] Lungs: Respirations even and unlabored, symmetrical chest expansion Eyes: PERRL Musculoskeletal: Flexion and extension of lumbar [spine] somewhat guarded secondary to pain, [antalgic gait noted] Neurological: Speech clear, no gross sensory deficit Assessment:: Degenerative disc disease of the lumbar spine with lumbar radiculopathy symptoms Coccydynia Plan:: Patient is not complaining of any pain today. Patient states that he gets a lot of pain when he starts doing activities. He was in a lot of pain 2 to 3 days ago when he was helping his brother with his car. He was tried on prednisone 20 mg twice a day for 5 days. He did not notice any difference in his pain with this medication. Patient states that he was unable to picker operator his diclofenac in the pharmacy. I will resend a diclofenac 75 mg twice a day for flareups. Patient is to continue going to physical therapy. Follow-up in 3 months. Patient has been instructed to contact the clinic with any concerns before the next appointment. Dr. Sullivan has reviewed this note and agrees with this plan of care. This note was dictated using voice recognition software and make contain errors or omissions. [facility] History Medical History: Reports:: Anxiety, Depression, Hypertension, Migraine Denies:: Diabetes Mellitus Type 2 *Have you ever received a pneumonia vaccine?: No *Have you received a flu vaccine this season?: No Other Medical History: Reports: Other Other Surgeries: Yes: Other Amputation: No Fractures: Yes - *Social History Smoking Status: Never smoker Alcohol Intake: never Alcohol Intake Frequency:: holidays/special occasions only Substance Use Type: denies use *Occupational Status:: employed Housing: house Household Members: spouse, children *Travel in the last 8 weeks: None - Psychiatric History Pschychiatric History:: Reports:: Anxiety, Depression Family Hx:: No significant family history
== END 2021-07-03 16:35 | disposition home or self-care (01) ==
LOC: PT 16:30
PROVIDERS: PCP Physician Assistant; Visit Provider Student in an Organized Health Care Education/Training Program
DX: M54.6 Pain in thoracic spine (principal); M54.50 Low back pain, unspecified; M79.605 Pain in left leg; M79.604 Pain in right leg
CPT/HCPCS: 97010; 97012; 97014; 97110; 97163; G0283

== ENCOUNTER 2021-07-27 12:40 | Emergency (ER) | payer OTHER, SELFPAY ==
[2021-07-27 13:50] VITALS: BP 146/99; PULSE 94; RESP 18; TEMP 36.8; O2SAT 95; BMI 33.9
--- NOTE | 2021-07-27 14:20 | HMH.EDUTC ---
[facility] [place] Clinical Impression: Chronic knee pain Qualifiers: Laterality: bilateral Qualified Code(s): M25.561 - Pain in right knee Disposition: Home, Self-Care Condition on Discharge: Good Instructions: DI for Low Back Pain, DI for Chronic Pain -- Adult Additional Instructions: Take your medications as prescribed by your Family Doctor and pain management Make sure to take breaks and sit as needed to help with knee pain Return if needed Straight to ER if any life threatening symptoms Follow up with your Family Doctor if no improvement or any worsening of symptoms Referrals: Alma Cabrera PA [Primary Care Provider] - As needed Forms: Work/School Release Time of Disposition: 14:36 Medical Decision Making - Joe Inquiry Pt receiving controlled substance: No Joe was queried for this patient: No Vital Signs: 07/27/21 13:50 Temperature 98.2 F Temperature Source Oral Pulse Rate [Left Brachial] 94 H Respiratory Rate 18 Blood Pressure [Left Arm] 146/99 H Blood Pressure Mean [Left Arm] 114 Blood Pressure Source [Left Arm] Automatic Cuff Blood Pressure Position [Left Arm] Sitting 02 Sat by Pulse Oximetry 95 Oxygen Delivery Method Room Air [facility] HPI - General Stated complaint: bilateral knee/back pain Time Seen by Provider: 07/27/21 14:20 Mode of Arrival: Ambulatory Source of Information: Patient Limitations: No Limitations Description of Symptoms (Recalled from Triage Doc. by RN): PATIENT STATES HE WOKE UP THIS MORNING WITH BILATERAL KNEE AND LOWER BACK PAIN. NO KNOWN INJURY. HEENT Symptoms (Recalled from RN notes): No Resp Symptoms (Recalled from RN notes): No Skin Symptoms (Recalled from RN notes): No MS Symptoms (Recalled from RN notes): Yes Functional Status (Recalled from RN notes): WNL - History of Present Illness Provider Complaint: Patient state that he has been under the care of his PCP for joint pain and the medication as been helping but today he woke up and was having some pain States that he stands at work and was worried that he may be unable to stand so he came in to see if he could get a note so he can sit when he needed and it requires him to have a note State that he was going to see PCP but they are out of office this week Denies new injury - Related Data Home Medications Medication Instructions Recorded Confirmed celecoxib 200 mg capsule 200 mg PO DAILY cap 07/06/21 07/27/21 Previous Rx's Medication Instructions Recorded buspirone 5 mg tablet 5 mg PO BID #180 tab 06/01/21 etodolac 400 mg tablet 400 mg PO BID #60 tab 06/01/21 clonazepam 2 mg tablet 2 mg PO BID #60 tab 06/28/21 Allergies Allergy/AdvReac Type Severity Reaction Status Date / Time No Known Allergies Allergy Verified 07/06/21 11:02 - Worker's Comp Is this a Worker's Comp case?: No [facility] History - Hepatitis A Screen Attestation statement:: This patient has been screened for Hepatitis A risk factors. I have reviewed the patient's past medical history: Yes Medical History: Reports:: Anxiety, Depression, Hypertension, Migraine Denies:: Diabetes Mellitus Type 2 Other Medical History: Reports: Other Comment: Bipolar disorder Other Surgeries: Yes: Other Amputation: No Fractures: Yes Comment: Nose - Social History Smoking Status: Never smoker Alcohol Intake: never Alcohol Intake Frequency:: holidays/special occasions only Substance Use Type: denies use Occupational Status: employed Housing: house Household Members: spouse, children - Psychiatric History Pschychiatric History:: Reports:: Anxiety, Depression Family Hx:: No significant family history ROS Obtained: Yes All systems reviewed & no additional complaints, Yes Systems reviewed as appropriate & no additional complaints - Constitutional Constitutional: Reports system reviewed and no additional complaints, except as docu, Denies body ache, Denies chills, Denies fever(s) - ENT Ears, Nose, Mouth, and Throat: Reports syst
[2021-07-27 14:45] VITALS: BP 146/99; PULSE 94; RESP 18; TEMP 36.8; O2SAT 95
== END 2021-07-27 14:48 | disposition home or self-care (01) ==
PROVIDERS: Emergency Provider Nurse Practitioner; PCP Physician Assistant
DX: M25.561 Pain in right knee (principal); M54.50 Low back pain, unspecified; I10 Essential (primary) hypertension; F41.8 Other specified anxiety disorders; G43.709 Chronic migraine without aura, not intractable, without status migrainosus
CPT/HCPCS: 99212; G0463

== ENCOUNTER 2021-08-30 10:13 | Emergency (ER) | payer OTHER, SELFPAY ==
[2021-08-30 10:24] VITALS: BP 168/110; PULSE 106; RESP 18; TEMP 37.6; O2SAT 95; BMI 31.6
--- NOTE | 2021-08-30 10:28 | HMH.EDUTC ---
[facility] [place] Disposition Clinical Impression: COVID-19 Pharyngitis Qualifiers: Pharyngitis/tonsillitis etiology: unspecified etiology Qualified Code(s): J02.9 - Acute pharyngitis, unspecified Disposition: Home, Self-Care Condition on Discharge: Good Instructions: DI for Pharyngitis/Tonsillopharyngitis -- Adult, DI for COVID-19 (Suspected or Confirmed ), Preventing the Spread of Coronavirus Discharge Instructions Additional Instructions: Drink plenty of fluids. Take tylenol or ibuprofen for pain or fever. Take the medications as directed. Follow up with your regular doctor. GO TO THE ER FOR ANY WORSENING SYMPTOMS The cough medication (promethazine dm) will make you drowsy, so don't drive or operate heavy machinery after taking it. Prescriptions: Promethazine/Dextromethorphan [Promethazine-Dm Syrup] 5 ml PO Q6HP PRN #240 ml PRN Reason: Cough Transmission Status: Received by [facility] [employer] methylPREDNISolone [Medrol] 4 mg PO DIRECTED 6 Days #21 packet Transmission Status: Received by [facility] [employer] Azithromycin [Z-Bogdan 250mg Tab*] 250 mg PO UD DOSE PK #6 tab Transmission Status: Re[facility] by [facility] Referrals: Alma Cabrera PA [Primary Care Provider] - Time of Disposition: 10:43 Medical Decision Making - Medical Records Medical records reviewed: No: I reviewed the patient's medical records. - Joe Inquiry Pt receiving controlled substance: No Vital Signs: 08/30/21 10:24 08/30/21 10:49 Temperature 99.7 F H 99.6 F Temperature Source Oral Pulse Rate 95 H Pulse Rate [Left Radial] 106 H Respiratory Rate 18 17 Blood Pressure 150/95 H Blood Pressure [Right Arm] 168/110 H Blood Pressure Mean [Right Arm] 129 02 Sat by Pulse Oximetry 95 - Lab Data Lab results reviewed: Yes: I reviewed the patient's lab results. Lab Results 08/30/21 10:24: Group A Strep Rapid Negative Orders (Tests/Meds): ORDERS Category Date Time Status Strep Screen Confirmation Stat Micro 08/30/21 10:24 Received [facility] HPI - General Stated complaint: covid pos /, sore throat Time Seen by Provider: 08/30/21 10:28 Description of Symptoms (Recalled from Triage Doc. by RN): patient comes in today with complaints of a sore throat. patient states that he tested postive for covid saturday HEENT Symptoms (Recalled from RN notes): Yes Resp Symptoms (Recalled from RN notes): No Skin Symptoms (Recalled from RN notes): No MS Symptoms (Recalled from RN notes): No Functional Status (Recalled from RN notes): wnl - History of Present Illness Provider Complaint: He states that he was diagnosed with covid-19 4 days ago. Since then he states that he has did ok, but he is having a very sore throat. He thinks he has strep throat with covid-19. He denies any shortness of breath and chest tightness. - Related Data Home Medications Medication Instructions Recorded Confirmed celecoxib 200 mg capsule 200 mg PO DAILY cap 07/06/21 08/30/21 lamotrigine 150 mg tablet 150 mg PO BID tab 08/07/21 08/07/21 lisinopril 10 mg tablet 10 mg PO DAILY tab 08/07/21 08/30/21 metoprolol succinate 50 mg 50 mg PO DAILY tab 08/07/21 08/30/21 tablet,extended release 24 hr quetiapine 50 mg tablet 50 mg PO HS tab 08/07/21 08/30/21 Previous Rx's Medication Instructions Recorded buspirone 5 mg tablet 5 mg PO BID #180 tab 06/01/21 etodolac 400 mg tablet 400 mg PO BID #60 tab 06/01/21 clonazepam 2 mg tablet 2 mg PO BID #60 tab 08/07/21 Azithromycin [Z-Bogdan 250mg Tab*] 250 mg PO UD DOSE PK #6 tab 08/30/21 Promethazine/Dextromethorphan 5 ml PO Q6HP PRN #240 ml 08/30/21 [Promethazine-Dm Syrup] methylPREDNISolone [Medrol] 4 mg PO DIRECTED 6 Days #21 08/30/21 packet Allergies Allergy/AdvReac Type Severity Reaction Status Date / Time No Known Allergies Allergy Verified 08/07/21 13:57 - Worker's Comp Is this a Worker's Comp case?: No [facility] History - Hepatitis A Screen Att
[2021-08-30 10:44] LABS: Strep Scrn Group A (Rapid) Negative (Negative)
[2021-08-30 10:49] VITALS: BP 150/95; PULSE 95; RESP 17; TEMP 37.6
== END 2021-08-30 10:58 | disposition home or self-care (01) ==
PROVIDERS: Emergency Provider Nurse Practitioner Family; PCP Physician Assistant
DX: U07.1 COVID-19 (principal); J02.9 Acute pharyngitis, unspecified; I10 Essential (primary) hypertension
CPT/HCPCS: 87430; 99212; G0463

== ENCOUNTER → 2021-10-20 06:33 | Outpatient (CLI) | payer OTHER, SELFPAY ==
[2021-10-19 18:37] LABS: Alanine Aminotransferase 50 U/L (12-78); Albumin Level 4.2 g/dl (3.5-5.0); Albumin/Globulin Ratio 1.6 (1.1-1.8); Alkaline Phosphatase 134 U/L (38-126); Anion Gap 10.6 mEq/L (5-15); Aspartate Amino Transferase 38 U/L (17-59); Bilirubin,Total 0.8 mg/dl (0.2-1.3); Blood Urea Nitrogen 10 mg/dl (9-20); Calcium 9.8 mg/dl (8.4-10.2); Carbon Dioxide 29 mmol/L (22.0-30.0); Chloride 102 mmol/L (98-107); Chol/HDL Ratio 6.8 (1-3.5); Cholesterol 196 mg/dl (140-200); Estimated Glomerular Filt Rate 98 ml/min (>60); GFR (African American) 118 ML/MIN (>60); Globulin 2.7 g/dL (1.3-3.2); Glucose 96 mg/dl (74-100); HDL Cholesterol 29 mg/dl (40-60); Potassium 4.6 mmoL/L (3.5-5.1); Sodium 137 mmol/L (136-145); Total Protein,Serum 6.9 g/dl (6.3-8.2); Triglycerides 160 mg/dl (30-150); VLDL Cholesterol 32 mg/dL (0-40)
[2021-10-19 18:40] LABS: Basophils # 0.1 K/mm3 (0-0.2); Basophils % 0.7 % (0.1-2.0); Eosinophils # 0.1 K/mm3 (0.0-0.4); Eosinophils % 1.3 % (0.1-12.0); Hematocrit 45.1 % (42.0-52.0); Lymphocytes # 1.5 K/mm3 (0.7-4.5); Lymphocytes % 20.3 % (10-50); Mean Corpuscular HGB Conc 33.2 g/dL (31.8-35.4); Mean Corpuscular Hemoglobin 30.1 pg (27.0-31.2); Mean Corpuscular Volume 90.5 fl (80-94); Mean Platelet Volume 8.2 fl (7.4-10.4); Monocytes # 0.5 K/mm3 (0.1-1.0); Monocytes % 6.4 % (1.7-9.3); Neutrophils # 5.4 K/mm3 (1.8-7.8); Neutrophils % 71.3 % (37.0-80.0); Platelet Count 341 K/mm3 (142-424); Red Blood Count 4.98 M/mm3 (4.60-6.20); Red Cell Distribution Width 13.9 % (11.5-17.5); White Blood Count 7.5 K/mm3 (4.8-10.8)
[2021-10-19 18:49] LABS: Direct LDL Cholesterol 138.58 mg/dL (100-129)
[2021-10-19 18:55] LABS: 25-OH Vitamin D, Total 37.5 ng/mL (30-100)
[2021-10-19 19:08] LABS: Prostate Specific Ag Screen 1.8 ng/ml (0.0-4.0); Thyroid Stimulating Hormone 2.38 uIU/mL (0.465-4.68)
[2021-10-19 19:27] LABS: Vitamin B12 527 pg/mL (239-931)
== END ==
PROVIDERS: PCP Physician Assistant; Visit Provider Physician Assistant
DX: F41.9 Anxiety disorder, unspecified (principal); Z12.5 Encounter for screening for malignant neoplasm of prostate; E66.9 Obesity, unspecified; Z68.32 Body mass index [BMI] 32.0-32.9, adult
CPT/HCPCS: 80053; 80061; 82306; 82607; 84443; 85025; G0103

== ENCOUNTER → 2021-10-23 12:56 | Outpatient (POV) | payer OTHER, SELFPAY ==
[2021-10-23 13:13] VITALS: BP 154/87; PULSE 68; RESP 20; TEMP 36.9; O2SAT 96; BMI 32.5
--- NOTE | 2021-10-23 13:34 | HMH.PAINSOAP ---
[facility] Pain Management SOAP Note Subjective:: Patient is a pleasant 51-year-old male who presents today for follow-up. 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 We have been managing this patient with injective therapy. We have tried lumbar epidural straight injection that provided minimal relief. Today, patient states that he is mainly complaining of pain around his low back, bilateral hands, left knee. 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 His main concern today is his hand pain. He states that he gets radiating pain to his bilateral hands that is accompanied with some numbness and paresthesia. He was seen at who did a couple of digital nerve blocks that provided minimal relief. He feels like his right second digit locks up a lot. He has not had any imaging of his neck. He has tried and failed several weeks of physical therapy and home exercises in the last 6 months. Rates pain today as 6/10. For pain, he takes OTC meds and lidocaine patches. He also takes clonazepam that is prescribed by Alma Cabrera. Joe [id number], MEQ 0. Review of Systems: General: No recent weight changes, no fever, no sleep disturbances Respiratory: No cough, no shortness of air, no recurring pulmonary infections Cardiovascular/peripheral vascular: No chest pain, no palpitations, no edema, no shortness of breath Gastrointestinal: No new onset incontinence, normal bowel movements reported Genitourinary: No new onset incontinence Musculoskeletal: Neck pain, low back pain, left knee pain, bilateral hand pain Psychiatric: [Normal mood/affect] Neurological: [Denies weakness in extremities], [denies balance issues] Objective:: Physical Exam: General: Alert and oriented x3, no acute distress, pleasant and cooperative Lungs: Respirations even and unlabored, symmetrical chest expansion Eyes: PERRL Musculoskeletal: Flexion and extension of cervical and lumbar [spine] somewhat guarded secondary to pain, [antalgic gait noted]; limited range of motion of bilateral hands secondary to pain Neurological: Speech clear, no gross sensory deficit Assessment:: Degenerative disc disease of the lumbar spine with low radiculopathy symptoms, bilateral hand pain, left knee pain, neck pain Plan:: Patient continues to have bilateral hand pain that is accompanied with some numbness and paresthesia. He has had a left arm MRI that was grossly negative. He has been evaluated by [facility] who did digital nerve blocks for his hands that provided minimal relief. His right second digit keeps locking up on him. He has tried physical therapy and home exercises for greater than 6 weeks. We will order an updated cervical MRI to further evaluate pathology. If he has significant degenerative disc changes on cervical spine, patient might benefit from a cervical epidural steroid injection. Patient has been instructed to contact the clinic with any concerns before the next appointment. Dr. Sullivan has reviewed this note and agrees with this plan of care. This note was dictated using voice recognition software and make contain errors or omissions. [facility] History Medical History: Reports:: Anxiety, Depression, Hypertension, Migraine Denies:: Diabetes Mellitus Type 2 *Have you ever received a pneumonia vaccine?: No *Have you received a flu vaccine this season?: No Other Medical History: Reports: Other Other Surgeries: Yes: No Previous Surgery, Other Amputation: No Fractures: Yes - *Social History Smoking Status: Never smoker Alcohol Intake: never Alcohol Intake Frequency:: holidays/special occasions only Substance Use Type: denies use *Occupational Status:: other Housing: house Household Members: spouse, children *Travel in the last 8 weeks: None - Psychiatric History Pschychiatric History:: Reports:: Anxiety, Depression Family Hx:: No significant fam
== END ==
PROVIDERS: PCP Physician Assistant; Visit Provider Student in an Organized Health Care Education/Training Program
DX: M51.16 Intervertebral disc disorders with radiculopathy, lumbar region (principal); M79.641 Pain in right hand; M79.642 Pain in left hand; M25.562 Pain in left knee; M54.2 Cervicalgia
CPT/HCPCS: 99212; G0463

== ENCOUNTER 2021-10-25 18:54 | Emergency (ER) | payer OTHER, SELFPAY ==
--- NOTE | 2021-10-25 19:07 | HMH.EDUTC ---
[facility] [place] Disposition Clinical Impression: Right arm pain, Right wrist tendonitis, Right hand pain Disposition: Home, Self-Care Condition on Discharge: Good Instructions: DI for Tendinitis Additional Instructions: Rest the extremity, Wear the jaziel wrap for compression, Elevate the extremity as tolerated while you are resting. Take ibuprofen for pain. I sent in a prescription to your pharmacy. Follow up with Dr. Schaffer (orthopedics) for further evaluation of your right arm. I put in a referral but you need to call his office and schedule an appointment. Follow up with your regular doctor. GO TO THE ER FOR ANY WORSENING SYMPTOMS Prescriptions: Ibuprofen [Ibuprofen 800mg Tablet] 800 mg PO Q8HP PRN #30 tab PRN Reason: Moderate Pain Transmission Status: Received by [facility] Referrals: Alma Cabrera PA [Primary Care Provider] - Livan Schaffer MD [Staff Physician] - Forms: Work/School Release Time of Disposition: 20:02 Medical Decision Making - Medical Records Medical records reviewed: No: I reviewed the patient's medical records. - Joe Inquiry Pt receiving controlled substance: No Vital Signs: 10/25/21 19:13 10/25/21 20:21 Temperature 98.1 F 98.1 F Temperature Source Oral Pulse Rate 79 Pulse Rate [Left] 79 Respiratory Rate 16 16 Blood Pressure 157/99 H Blood Pressure [Right Arm] 157/99 H Blood Pressure Mean [Right Arm] 118 02 Sat by Pulse Oximetry 96 [facility] [place] HPI - General Stated complaint: pain R hand wrist,arm (no accident Time Seen by Provider: 10/25/21 19:07 - History of Present Illness Provider Complaint: He c/o right wrist, forearm, elbow and bicep area pain. His symptoms started about 2 weeks ago and seem to be caused by moving his arm a lot. He has recently started a new job that requires him to use this arm a lot. He denies any known injury. - Related Data Home Medications Medication Instructions Recorded Confirmed celecoxib 200 mg capsule 200 mg PO BID cap 07/06/21 10/23/21 Buspirone HCl [Buspar 10mg 10 mg PO TID 10/23/21 10/23/21 tablet] lamoTRIgine [Lamotrigine] 200 mg PO BID 10/23/21 10/23/21 Previous Rx's Medication Instructions Recorded etodolac 400 mg tablet 400 mg PO BID #60 tab 06/01/21 clonazepam 2 mg tablet 2 mg PO BID #60 tab 10/19/21 lisinopril 10 mg tablet 10 mg PO DAILY #90 tab 10/19/21 metoprolol succinate 50 mg 50 mg PO DAILY #90 tab 10/19/21 tablet,extended release 24 hr quetiapine 50 mg tablet 50 mg PO HS #90 tab 10/19/21 Ibuprofen [Ibuprofen 800mg 800 mg PO Q8HP PRN #30 tab 10/25/21 Tablet] Allergies Allergy/AdvReac Type Severity Reaction Status Date / Time No Known Allergies Allergy Verified 10/25/21 19:16 [facility] History - Hepatitis A Screen Attestation statement:: This patient has been screened for Hepatitis A risk factors. I have reviewed the patient's past medical history: Yes Medical History: Reports:: Anxiety, Depression, Hypertension, Migraine Denies:: Diabetes Mellitus Type 2 Other Medical History: Reports: Other Comment: Bipolar disorder, erectile dysfunction Other Surgeries: Yes: No Previous Surgery, Other Amputation: No Fractures: Yes Comment: Nose - Social History Smoking Status: Never smoker Alcohol Intake: never Alcohol Intake Frequency:: holidays/special occasions only Substance Use Type: denies use Occupational Status: other Housing: house Household Members: spouse, children - Psychiatric History Pschychiatric History:: Reports:: Anxiety, Depression Family Hx:: No significant family history ROS Obtained: Yes All systems reviewed & no additional complaints - Constitutional Constitutional: Denies chills, Denies fever(s) - Eyes Eyes: Denies eye discharge - Cardiovascular Cardiovascular: Denies chest pain - Musculoskeletal Musculoskeletal: Reports as per HPI - Integumentary/Breasts Skin/Breast: Denies redness, Denies rash, Denies wounds - Neur
[2021-10-25 19:13] VITALS: BP 157/99; PULSE 79; RESP 16; TEMP 36.7; O2SAT 96; BMI 32.5
[2021-10-25 20:21] VITALS: BP 157/99; PULSE 79; RESP 16; TEMP 36.7
== END 2021-10-25 20:22 | disposition home or self-care (01) ==
PROVIDERS: Emergency Provider Nurse Practitioner Family; PCP Physician Assistant
DX: M25.531 Pain in right wrist (principal); M79.641 Pain in right hand
CPT/HCPCS: 99212; G0463

== ENCOUNTER → 2021-11-03 13:23 | Outpatient (CLI) | payer OTHER, SELFPAY ==
--- NOTE | 2021-11-03 13:26 | MR_ITS ---
FINAL REPORT CLINICAL HISTORY: NECK PAIN. RIGHT ARM PAIN, NUMBNESS, AND TINGLING FOR 2 YEARS. FINDINGS: Multiplanar MR imaging of the cervical spine was performed without contrast. On the sagittal T2-weighted images, multilevel disc degeneration is seen. There is no evidence of fracture. There is mild kyphosis centered at C5-6. The cervical spinal cord has an unremarkable appearance without evidence of mass, edema or syrinx. No significant canal stenosis is identified. The cervicomedullary junction is normal. C2-3: There is no significant canal stenosis or neural foraminal narrowing. C3-4: There is no significant canal stenosis or neural foraminal narrowing. C4-5: There is no significant canal stenosis or neural foraminal narrowing. C5-6: Annular disc bulge and small central disc protrusion. C6-7: There is no significant canal stenosis or neural foraminal narrowing. C7-T1: There is no significant canal stenosis or neural foraminal narrowing. IMPRESSION: Annular disc bulge and small central disc protrusion at C5-6. Reviewed, Interpreted and Dictated by Jose A Garcia III, MD Transcribed by Marlene Golden Authenticated and . [facility]
== END ==
PROVIDERS: PCP Physician Assistant; Visit Provider Student in an Organized Health Care Education/Training Program
DX: M54.2 Cervicalgia (principal)
CPT/HCPCS: 72141; 76376

== ENCOUNTER 2022-06-09 13:28 | Emergency (ER) | payer OTHER, SELFPAY ==
[2022-06-09 13:45] VITALS: BP 152/93; PULSE 123; RESP 22; TEMP 37.7; O2SAT 96; BMI 36.8
[2022-06-09 14:08] LABS: UTC Strep Screen (Rapid) Positive (Negative)
--- NOTE | 2022-06-09 14:09 | EXP.UTC ---
Discharge Plan Disposition Patient Disposition: Home, Self-Care Condition: Good Prescriptions Prescriptions: New azithromycin [azithromycin] 250 mg tablet 250 mg PO DIRECTED Qty: 6 0RF Rx Instructions: Take two (2) tablets on day #1, then one (1) tablet day #2 thru #5 No Action albuterol sulfate 90 mcg/actuation HFA aerosol inhaler 2 inh IH Q6H PRN (Reason: shortness of breath or wheezing) 90 Days Qty: 8.5 1RF buspirone 10 mg tablet 10 mg PO TID Qty: 270 3RF celecoxib 200 mg capsule 200 mg PO BID Qty: 180 3RF etodolac 400 mg tablet 400 mg PO BID Qty: 180 3RF lamotrigine 200 mg tablet 200 mg PO BID Qty: 180 3RF metoprolol succinate 50 mg tablet extended release 24 hr 50 mg PO DAILY Qty: 90 3RF quetiapine [Seroquel] 100 mg tablet 100 mg PO HS Qty: 90 1RF lisinopril 20 mg tablet 20 mg PO DAILY Qty: 90 1RF clonazepam 2 mg tablet 2 mg PO BID Qty: 60 0RF ibuprofen 800 MG tablet 800 mg PO Q8HP PRN (Reason: Moderate Pain) Qty: 30 0RF Referrals Follow up/Referrals: Alma Cabrera PA [Primary Care Provider] - See instructions Activity Restrictions/Add. Instructions Additional Instructions/Restrictions: Start antibiotics today be sure to take it as ordered with the full length of time although you should start feeling better in 24-48 hours. Change toothbrush and toothpaste 24-48 hours after starting antibiotics Tylenol or Motrin as needed for fever or pain Encourage fluids, water, Gatorade, Powerade, try cold fluids, popsicles, ice cream will make it feel better You are contagious for 24 hours. Avoid kissing anyone, no eating or drinking after anyone. You are contagious. Follow-up the ER for new or worsening symptoms or no noticeable improvement over the next 24-48 hours. Follow-up with PCP this week. Clinical Impressions Clinical Impression: Strep sore throat Instructions Patient Instructions: DI for Strep Throat Discharge [facility] [facility] [place] HPI General Stated complaint: Sore throat, congestion Mode of Arrival: Ambulatory Source of Information: Patient Limitations: No Limitations Time Seen by Provider: 06/09/22 14:09 Description of Symptoms (Recalled from Triage Doc. by RN): PATIENT C/O SORE THROAT, CONGESTION, HEADACHE AND EAR ACHE SINCE SATURDAY HEENT Symptoms (Recalled from RN notes): Yes Resp Symptoms (Recalled from RN notes): No Skin Symptoms (Recalled from RN notes): No MS Symptoms (Recalled from RN notes): No Functional Status (Recalled from RN notes): WNL History of Present Illness Provider Complaint: 31 yr old male presents for sore throat,tidwell,ear pain and congestion since saturday. child has strep Related Data Previous Rx's Medication Instructions Recorded ibuprofen 800 mg tablet 800 mg PO Q8HP PRN Moderate Pain 10/25/21 #30 tabs albuterol sulfate 90 mcg/actuation 2 inh inhalation Q6H PRN shortness 10/27/21 aerosol inhaler of breath or wheezing 90 days #8.5 grams buspirone 10 mg tablet 10 mg PO TID Depression #270 tabs 11/23/21 celecoxib 200 mg capsule 200 mg PO BID Arthritis #180 caps 11/23/21 etodolac 400 mg tablet 400 mg PO BID Joint Pain #180 tabs 11/23/21 lamotrigine 200 mg tablet 200 mg PO BID . #180 tabs 11/23/21 metoprolol succinate 50 mg 50 mg PO DAILY Anxiety #90 tabs 11/23/21 tablet,extended release 24 hr lisinopril 20 mg tablet 20 mg PO DAILY #90 tabs 04/23/22 quetiapine 100 mg tablet (Seroquel) 100 mg PO HS #90 tabs 04/23/22 clonazepam 2 mg tablet 2 mg PO BID Anxiety #60 tabs 06/05/22 azithromycin 250 mg tablet 250 mg PO DIRECTED #6 tabs 06/09/22 Allergies Allergy/AdvReac Type Severity Reaction Status Date / Time No Known Allergies Allergy Verified 04/23/22 14:25 Worker's Comp Is this a Worker's Comp case?: No [facility] Disclaimer: The information contained in this section may have been updated after the patient was seen, as this information can be updated by other
[2022-06-09 14:16] VITALS: BP 152/93; PULSE 123; RESP 22; TEMP 37.7; O2SAT 96
== END 2022-06-09 14:18 | disposition home or self-care (01) ==
PROVIDERS: Emergency Provider Nurse Practitioner Family; PCP Physician Assistant
DX: J02.0 Streptococcal pharyngitis (principal); R51.9 Headache, unspecified; H92.09 Otalgia, unspecified ear
CPT/HCPCS: 87880; 99212; 99214; G0463

== ENCOUNTER 2022-12-02 12:22 | Emergency (ER) | payer OTHER, SELFPAY ==
[2022-12-02 12:30] VITALS: BP 148/97; PULSE 100; RESP 18; TEMP 37.1; O2SAT 98; BMI 37.5
--- NOTE | 2022-12-02 12:53 | EXP.UTC ---
Discharge Plan Disposition Patient Disposition: Home, Self-Care Condition: Good Prescriptions Prescriptions: New methylprednisolone 4 mg Tablets,Dose Pack 4 mg PO DIRECTED Qty: 21 0RF cyclobenzaprine 10 mg Tablet 10 mg PO BID PRN (Reason: Muscle Spasm) Qty: 20 0RF No Action albuterol sulfate 90 mcg/actuation HFA aerosol inhaler 2 inh IH Q6H PRN (Reason: shortness of breath or wheezing) 90 Days Qty: 8.5 1RF celecoxib 200 mg capsule 200 mg PO BID Qty: 180 3RF metoprolol succinate 50 mg tablet extended release 24 hr 50 mg PO DAILY Qty: 90 3RF lamotrigine 200 mg tablet 200 mg PO BID Qty: 180 3RF buspirone 10 mg tablet 10 mg PO TID Qty: 270 3RF Lybalvi 20-10 mg tablet 1 tab PO DAILY Qty: 30 2RF clonazepam 2 mg tablet 2 mg PO BID Qty: 60 0RF ibuprofen 800 MG tablet 800 mg PO Q8HP PRN (Reason: Moderate Pain) Qty: 30 0RF quetiapine 100 mg tablet 100 mg PO DAILY Patient Comments: TAKE ONE TABLET BY MOUTH EVERY DAY AT BEDTIME lisinopril 20 mg tablet 20 mg PO DAILY Referrals Follow up/Referrals: Alma Cabrera PA [Primary Care Provider] - See instructions Activity Restrictions/Add. Instructions Additional Instructions/Restrictions: Go home and rest. It would be best if you rested tomorrow too. No heavy lifting. No twisting for the next few days. Take the oral medications as directed. The muscle relaxer (cyclobenzaprine--Flexeril) will make you drowsy, so don't drive or operate heavy machinery after taking it. Don't start the oral steroids (medrol dose pack) until tomorrow, since you had the shots in here today. Follow up with your regular doctor. GO TO THE ER FOR ANY WORSENING SYMPTOMS OR CONCERN, ESPECIALLY BOWEL OR BLADDER ISSUES, SADDLE AREA NUMBNESS, FEVER, ETC Clinical Impressions Clinical Impression: Torticollis Stand Alone Forms Stand Alone Forms: Work/School Release Instructions Patient Instructions: Torticollis, DI for Torticollis, Cyclobenzaprine, Methylprednisolone Injection, Ketorolac Injection Discharge ED Provider: Miguel Messina [facility] HPI General Stated complaint: neck pain, unknown origin Mode of Arrival: Ambulatory Source of Information: Patient Limitations: No Limitations Time Seen by Provider: 12/02/22 12:47 Description of Symptoms (Recalled from Triage Doc. by RN): neck pain. He stated that this started a week ago he cannot move his neck without it hurting. He denies pain radiating any where. He states that last night he wasn't able to sleep for the pain. HEENT Symptoms (Recalled from RN notes): Yes Resp Symptoms (Recalled from RN notes): No Skin Symptoms (Recalled from RN notes): No MS Symptoms (Recalled from RN notes): No Functional Status (Recalled from RN notes): n/a History of Present Illness Provider Complaint: He states that for the past 1 week he has had right sided posterior neck pain. He denies any injury, falls, or mva. He states that he woke up one morning with the neck pain. He has had similar episodes in the past. He denies any numbness or extremities or other symptoms. Related Data Home Medications Medication Instructions Recorded Confirmed lisinopril 20 mg tablet 20 mg PO DAILY . 12/02/22 12/02/22 quetiapine 100 mg tablet 100 mg PO DAILY . 12/02/22 12/02/22 Previous Rx's Medication Instructions Recorded ibuprofen 800 mg tablet 800 mg PO Q8HP PRN Moderate Pain 10/25/21 #30 tabs albuterol sulfate 90 mcg/actuation 2 inh inhalation Q6H PRN shortness 10/27/21 aerosol inhaler of breath or wheezing 90 days #8.5 grams celecoxib 200 mg capsule 200 mg PO BID Arthritis #180 caps 11/23/21 buspirone 10 mg tablet 10 mg PO TID Depression #270 tabs 07/04/22 lamotrigine 200 mg tablet 200 mg PO BID . #180 tabs 07/04/22 metoprolol succinate 50 mg 50 mg PO DAILY Anxiety #90 tabs 07/04/22 tablet,extended release 24 hr olanzapine 20 mg-samidorphan 10 mg 1 tab PO DAILY #30
[2022-12-02 13:34] VITALS: BP 148/97; PULSE 100; RESP 18; TEMP 37.1; O2SAT 98
== END 2022-12-02 13:34 | disposition home or self-care (01) ==
PROVIDERS: Emergency Provider Nurse Practitioner Family; PCP Physician Assistant
DX: M43.6 Torticollis (principal); I10 Essential (primary) hypertension; E55.9 Vitamin D deficiency, unspecified; F31.9 Bipolar disorder, unspecified; F41.9 Anxiety disorder, unspecified
CPT/HCPCS: 96372; 99212; 99214; G0463

== ENCOUNTER → 2023-01-30 23:26 | Outpatient (CLI) | payer OTHER, SELFPAY ==
[2023-01-30 19:21] LABS: Basophils % 0.2 % (0.1-2.0); Eosinophils # 0.1 K/mm3 (0.0-0.4); Eosinophils % 1.3 % (0.1-12.0); Hematocrit 42.9 % (42.0-52.0); Hemoglobin 15.4 g/dL (14.1-18.0); Lymphocytes # 1.7 K/mm3 (0.7-4.5); Lymphocytes % 24.7 % (10-50); Mean Corpuscular HGB Conc 35.9 g/dL (31.8-35.4); Mean Corpuscular Hemoglobin 32.6 pg (27.0-31.2); Mean Corpuscular Volume 90.8 fl (80-94); Mean Platelet Volume 8.7 fl (7.4-10.4); Monocytes # 0.5 K/mm3 (0.1-1.0); Monocytes % 7.2 % (1.7-9.3); Neutrophils # 4.6 K/mm3 (1.8-7.8); Neutrophils % 66.6 % (37.0-80.0); Platelet Count 304 K/mm3 (142-424); Red Blood Count 4.73 M/mm3 (4.60-6.20); Red Cell Distribution Width 13.8 % (11.5-17.5); White Blood Count 6.9 K/mm3 (4.8-10.8)
[2023-01-30 19:26] LABS: Alanine Aminotransferase 86 U/L (12-78); Albumin Level 4.5 g/dl (3.5-5.0); Albumin/Globulin Ratio 1.8 (1.1-1.8); Alkaline Phosphatase 112 U/L (38-126); Anion Gap 16.5 mEq/L (5-15); Aspartate Amino Transferase 50 U/L (17-59); Bilirubin,Total 0.4 mg/dl (0.2-1.3); Blood Urea Nitrogen 13 mg/dl (9-20); Calcium 9.7 mg/dl (8.4-10.2); Carbon Dioxide 25 mmol/L (22.0-30.0); Chloride 101 mmol/L (98-107); Chol/HDL Ratio 7.6 (1-3.5); Cholesterol 204 mg/dl (140-200); Estimated Glomerular Filt Rate 86 ml/min (>60); GFR (African American) 104 ML/MIN (>60); Globulin 2.5 g/dL (1.3-3.2); Glucose 114 mg/dl (74-100); HDL Cholesterol 27 mg/dl (40-60); Potassium 4.5 mmoL/L (3.5-5.1); Sodium 138 mmol/L (136-145); Triglycerides 235 mg/dl (30-150); VLDL Cholesterol 47 mg/dL (0-40)
[2023-01-30 19:38] LABS: C-Reactive Protein 18.8 mg/L (0-4); Direct LDL Cholesterol 138.05 mg/dL (100-129)
[2023-01-30 19:44] LABS: 25-OH Vitamin D, Total 19.5 ng/mL (30-100); Erythrocyte Sedimentation Rate 18 mm/hr (0-15)
[2023-01-30 19:58] LABS: Thyroid Stimulating Hormone 2.93 uIU/mL (0.465-4.68)
[2023-01-30 20:17] LABS: Vitamin B12 809 pg/mL (239-931)
[2023-02-01 10:09] LABS: Testosterone,Total 221 ng/dL (264-916)
[2023-02-01 12:18] LABS: Anti-Centromere B Antibodies <0.2 AI (0.0-0.9); Anti-DNA (DS) Ab Qn 1 IU/mL (0-9); Anti-Jo-1 <0.2 AI (0.0-0.9); Anti-Smith Antibody <0.2 AI (0.0-0.9); Antichromatin Antibodies <0.2 AI (0.0-0.9); Antiscleroderma-70 Antibodies <0.2 AI (0.0-0.9); RNP Antibodies <0.2 AI (0.0-0.9); Sjogren's Anti-SS-A <0.2 AI (0.0-0.9); Sjogren's Anti-SS-B <0.2 AI (0.0-0.9)
== END ==
PROVIDERS: PCP Physician Assistant; Visit Provider Physician Assistant
DX: E55.9 Vitamin D deficiency, unspecified (principal); I10 Essential (primary) hypertension; R53.83 Other fatigue; R73.09 Other abnormal glucose; Z68.37 Body mass index [BMI] 37.0-37.9, adult
CPT/HCPCS: 80053; 80061; 82306; 82607; 83036; 84403; 84443; 85025; 85651; 86140; 86225; 86235

== ENCOUNTER → 2023-02-05 13:45 | Outpatient (CLI) | payer OTHER, SELFPAY ==
[2023-02-07 09:30] LABS: Testosterone,Total 267 ng/dL (264-916)
== END ==
PROVIDERS: PCP Physician Assistant; Visit Provider Physician Assistant
DX: R79.89 Other specified abnormal findings of blood chemistry (principal)
CPT/HCPCS: 36415; 84403

== ENCOUNTER → 2023-03-04 10:55 | Outpatient (CLI) | payer OTHER, SELFPAY ==
[2023-03-04 13:01] LABS: Thyroid Stimulating Hormone 5.26 uIU/mL (0.465-4.68)
[2023-03-05 06:12] LABS: Sex Hormone Binding Globulin 21.2 nmol/L (16.5-55.9)
[2023-03-05 08:17] LABS: Estradiol 35.8 pg/mL (7.6-42.6); FSH 3.5 mIU/mL (1.5-12.4); Progesterone <0.1 ng/mL (0.0-0.5); Prolactin 10.6 ng/mL (4.0-15.2)
[2023-03-08 18:09] LABS: Free Testosterone (Direct) 12.2 pg/mL (8.7-25.1); Testosterone, Total, LC/MS 297.5 ng/dL (264.0-916.0)
== END ==
PROVIDERS: PCP Physician Assistant; Visit Provider Urology
DX: R79.89 Other specified abnormal findings of blood chemistry (principal); Z79.899 Other long term (current) drug therapy
CPT/HCPCS: 36415; 82626; 82670; 83001; 83002; 84144; 84146; 84270; 84443

== ENCOUNTER 2023-03-09 14:44 | Emergency (ER) | payer OTHER, SELFPAY ==
[2023-03-09 14:50] VITALS: BP 142/93; PULSE 106; RESP 19; TEMP 36.7; O2SAT 97; BMI 37.3
--- NOTE | 2023-03-09 15:16 | EXP.UTC ---
Discharge Plan Disposition Patient Disposition: Home, Self-Care Condition: Good Prescriptions Prescriptions: New amoxicillin [amoxicillin] 875 mg tablet 875 mg PO Q12H Qty: 20 0RF benzonatate [benzonatate] 100 mg capsule 100 mg PO TIDP PRN (Reason: Cough) Qty: 30 0RF methylprednisolone 4 mg Tablets,Dose Pack 4 mg PO DIRECTED Qty: 21 0RF No Action albuterol sulfate 90 mcg/actuation HFA aerosol inhaler 2 inh IH Q6H PRN (Reason: shortness of breath or wheezing) 90 Days Qty: 8.5 1RF celecoxib 200 mg capsule 200 mg PO BID Qty: 180 3RF metoprolol succinate 50 mg tablet extended release 24 hr 50 mg PO DAILY Qty: 90 3RF lamotrigine 200 mg tablet 200 mg PO BID Qty: 180 3RF buspirone 10 mg tablet 10 mg PO TID Qty: 270 3RF tadalafil [Cialis] 5 mg tablet 5 mg PO DAILY Qty: 30 2RF ergocalciferol (vitamin D2) 1,250 mcg (50,000 unit) capsule 1,250 mcg PO WEEKLY Qty: 14 3RF cholecalciferol (vitamin D3) 50 mcg (2,000 unit) capsule 50 mcg PO DAILY Qty: 90 3RF clonazepam 2 mg tablet 2 mg PO BID Qty: 60 0RF quetiapine 100 mg tablet See Rx Instructions .ROUTE .COMPLEX Qty: 90 1RF Dose Instruction: TAKE ONE TABLET BY MOUTH EVERY DAY AT BEDTIME Rx Instructions: TAKE ONE TABLET BY MOUTH EVERY DAY AT BEDTIME lisinopril 20 mg tablet See Rx Instructions .ROUTE .COMPLEX Qty: 90 1RF Dose Instruction: TAKE ONE TABLET BY MOUTH EVERY DAY Rx Instructions: TAKE ONE TABLET BY MOUTH EVERY DAY ibuprofen 800 MG tablet 800 mg PO Q8HP PRN (Reason: Moderate Pain) Qty: 30 0RF cyclobenzaprine 10 mg Tablet 10 mg PO BID PRN (Reason: Muscle Spasm) Qty: 20 0RF Referrals Follow up/Referrals: Alma Cabrera PA [Primary Care Provider] - See instructions Activity Restrictions/Add. Instructions Additional Instructions/Restrictions: Drink plenty of fluids. Take tylenol or ibuprofen for pain or fever. Take the medications as directed. Follow up with your regular doctor. GO TO THE ER FOR ANY WORSENING SYMPTOMS Clinical Impressions Clinical Impression: Acute bronchitis Instructions Patient Instructions: Acute Bronchitis, DI for Acute Bronchitis Discharge ED Provider: Miguel Messina [facility] [place] General Stated complaint: cough, congestion Mode of Arrival: Ambulatory Source of Information: Patient Limitations: No Limitations Time Seen by Provider: 03/09/23 15:15 Description of Symptoms (Recalled from Triage Doc. by RN): PATIENT C/O COUGH AND CONGESTION X 2 WEEKS AND HAS GOTTEN WORSE HEENT Symptoms (Recalled from RN notes): No Resp Symptoms (Recalled from RN notes): Yes Skin Symptoms (Recalled from RN notes): No MS Symptoms (Recalled from RN notes): No Functional Status (Recalled from RN notes): WNL History of Present Illness Provider Complaint: He states that for the past 2 weeks he has had worsening chest congestion. He has a productive cough with yellowish sputum. Related Data Previous Rx's Medication Instructions Recorded ibuprofen 800 mg tablet 800 mg PO Q8HP PRN Moderate Pain 10/25/21 #30 tabs albuterol sulfate 90 mcg/actuation 2 inh inhalation Q6H PRN shortness 10/27/21 aerosol inhaler of breath or wheezing 90 days #8.5 grams celecoxib 200 mg capsule 200 mg PO BID Arthritis #180 caps 11/23/21 buspirone 10 mg tablet 10 mg PO TID Depression #270 tabs 07/04/22 lamotrigine 200 mg tablet 200 mg PO BID . #180 tabs 07/04/22 metoprolol succinate 50 mg 50 mg PO DAILY Anxiety #90 tabs 07/04/22 tablet,extended release 24 hr cyclobenzaprine 10 mg tablet 10 mg PO BID PRN Muscle Spasm #20 12/02/22 tabs cholecalciferol (vitamin D3) 50 50 mcg PO DAILY #90 caps 02/04/23 mcg (2,000 unit) capsule ergocalciferol (vitamin D2) 1,250 1,250 mcg PO WEEKLY #14 caps 02/04/23 mcg (50,000 unit) capsule clonazepam 2 mg tablet 2 mg PO BID #60 tabs 02/27/23 lisinopril 20 mg tablet See Rx Instructions .Route 02/27/23 .COMPLEX #
[2023-03-09 15:53] VITALS: BP 142/93; PULSE 106; RESP 19; TEMP 36.7; O2SAT 97
== END 2023-03-09 15:54 | disposition home or self-care (01) ==
PROVIDERS: Emergency Provider Nurse Practitioner Family; PCP Physician Assistant
DX: J20.9 Acute bronchitis, unspecified (principal); R05.8 Other specified cough; R09.89 Other specified symptoms and signs involving the circulatory and respiratory systems; I10 Essential (primary) hypertension
CPT/HCPCS: 99212; 99214; G0463

== ENCOUNTER → 2023-03-21 22:16 | Outpatient (CLI) | payer OTHER, SELFPAY ==
[2023-03-21 16:15] LABS: Amphetamine/Metha Screen,Urine Negative ng/ml (<1000)
[2023-03-21 16:16] LABS: Barbiturates Screen,Urine Negative ng/ml (<200)
[2023-03-21 16:17] LABS: Benzodiazepines Screen,Urine Negative ng/ml (<200)
[2023-03-21 16:18] LABS: Cannabinoid Screen,Urine Negative ng/ml (<50); Methadone Screen,Urine Negative ng/ml (<300)
[2023-03-21 16:19] LABS: Cocaine Screen,Urine Negative ng/ml (<300); Opiate Screen,Urine Negative ng/ml (<300)
[2023-03-21 16:20] LABS: Phencyclidine Screen,Urine Negative ng/ml (<25)
== END ==
LOC: LAB.DROPOF 22:17
PROVIDERS: PCP Physician Assistant; Visit Provider Physician Assistant
DX: Z79.899 Other long term (current) drug therapy (principal)
CPT/HCPCS: 80307

== ENCOUNTER 2023-08-28 09:50 | Outpatient (CLI) | payer OTHER, SELFPAY ==
[2023-08-30 08:19] LABS: Testosterone,Total 249 ng/dL (264-916)
== END 2023-08-28 23:59 | disposition home or self-care (01) ==
LOC: LAB.DROPOF 08-30 09:50
PROVIDERS: PCP Physician Assistant; Visit Provider Physician Assistant
DX: E29.1 Testicular hypofunction (principal)
CPT/HCPCS: 84403

== ENCOUNTER 2023-10-08 14:02 | Outpatient (CLI) | payer OTHER, SELFPAY ==
--- NOTE | 2023-10-08 14:05 | XR_ITS ---
FINAL REPORT CLINICAL HISTORY: Rt Knee Pain COMPARISON: 04/06/2021 FINDINGS: AP, lateral and oblique views of the right knee were obtained. There is no prior exam for comparison. There is no acute osseous abnormality of the right knee. The joint space is preserved. The soft tissues are normal. There is no joint effusion. IMPRESSION: No acute osseous abnormality of the right knee. Reviewed, Interpreted and Dictated by Irais Reno MD Transcribed by Patricia Maza Authenticated and [facility]
== END 2023-10-08 23:59 | disposition home or self-care (01) ==
LOC: RAD 14:03
PROVIDERS: PCP Physician Assistant; Visit Provider Physician Assistant Surgical
DX: M25.561 Pain in right knee (principal)
CPT/HCPCS: 73562

== ENCOUNTER 2023-11-08 11:16 | Outpatient (CLI) | payer OTHER, SELFPAY ==
[2023-11-10 09:08] LABS: Testosterone,Total 470 ng/dL (264-916)
== END 2023-11-08 23:59 | disposition home or self-care (01) ==
LOC: LAB.DROPOF 11-11 11:17
PROVIDERS: PCP Physician Assistant; Visit Provider Physician Assistant
DX: N52.9 Male erectile dysfunction, unspecified (principal)
CPT/HCPCS: 84403